=== PATIENT | male | born 1965 | race Caucasian/White ===

== ENCOUNTER → 2016-11-14 | Outpatient (CLI) | payer OTHER ==
[2016-11-14 18:54] LABS: ALBUMIN 4.1 GM/DL (3.2-5.2); ALBUMIN/GLOBULIN RATIO 1.14 (1.00-1.93); ALKALINE PHOSPHATASE 64 U/L (45-117); ALT/SGPT 19 U/L (12-78); ANION GAP 11 MEQ/L (8-16); AST/SGOT 16 U/L (15-37); BILIRUBIN,TOTAL 0.3 MG/DL (0.2-1.0); BLOOD UREA NITROGEN 6 MG/DL (7-18); CALCIUM LEVEL 9.2 MG/DL (8.5-10.1); CARBON DIOXIDE LEVEL 25 MEQ/L (21-32); CHLORIDE LEVEL 104 MEQ/L (98-107); CHOLESTEROL LEVEL 273 MG/DL (<200); CREATININE FOR GFR 0.75 MG/DL (0.70-1.30); GLOMERULAR FILTRATION RATE > 60.0 (>56); GLUCOSE, FASTING 64 MG/DL (70-105); POTASSIUM SERUM 4.5 MEQ/L (3.5-5.1); SODIUM LEVEL 140 MEQ/L (136-145); TOTAL PROTEIN 7.7 GM/DL (6.4-8.2); TRIGLYCERIDES LEVEL 163 MG/DL (<150)
== END ==
LOC: M WUC 15:17
PROVIDERS: ATTEND Family Medicine Addiction Medicine
DX: I10 Essential (primary) hypertension (principal)

== ENCOUNTER → 2018-02-05 | Outpatient (CLI) | payer OTHER ==
[2018-02-05 17:01] LABS: ALBUMIN 4.1 GM/DL (3.2-5.2); ALBUMIN/GLOBULIN RATIO 1.11 (1.00-1.93); ALKALINE PHOSPHATASE 67 U/L (45-117); ALT/SGPT 36 U/L (12-78); ANION GAP 10 MEQ/L (8-16); AST/SGOT 24 U/L (7-37); BILIRUBIN,TOTAL 0.5 MG/DL (0.2-1.0); BLOOD UREA NITROGEN 7 MG/DL (7-18); CALCIUM LEVEL 9.5 MG/DL (8.5-10.1); CARBON DIOXIDE LEVEL 24 MEQ/L (21-32); CHLORIDE LEVEL 101 MEQ/L (98-107); CHOLESTEROL LEVEL 250 MG/DL (<200); CHOLESTEROL RISK RATIO 2.551 (<5); CREATININE FOR GFR 0.79 MG/DL (0.70-1.30); GLOMERULAR FILTRATION RATE > 60.0 (>56); GLUCOSE, FASTING 78 MG/DL (70-100); HDL CHOLESTEROL 98 MG/DL (>40); LDL CHOLESTEROL 133.4 MG/DL (<100); NON-HDL-C 152 MG/DL; POTASSIUM SERUM 4.2 MEQ/L (3.5-5.1); SODIUM LEVEL 135 MEQ/L (136-145); TOTAL PROTEIN 7.8 GM/DL (6.4-8.2); TRIGLYCERIDES LEVEL 93 MG/DL (<150)
== END ==
LOC: M WUC 13:25
DX: M54.5 Low back pain (principal); I10 Essential (primary) hypertension
CPT/HCPCS: 84443

== ENCOUNTER 2018-02-15 12:53 | Outpatient (RCR) | payer OTHER | END 2018-03-11 | LOC: M PT 12:53 | DX: Z51.89 Encounter for other specified aftercare (principal); M54.5 Low back pain | CPT/HCPCS: 97010 ==

== ENCOUNTER 2018-05-10 12:55 | Outpatient (RCR) | payer MEDICAID | END 2018-05-11 | LOC: M PT 12:55 | DX: Z51.89 Encounter for other specified aftercare (principal); M54.5 Low back pain | CPT/HCPCS: 97110 ==

== ENCOUNTER 2018-05-13 12:20 | Outpatient (RCR) | payer MEDICAID | END 2018-06-11 | LOC: M PT 05-23 13:39 | DX: Z51.89 Encounter for other specified aftercare (principal); M54.5 Low back pain ==

== ENCOUNTER → 2018-10-10 | Outpatient (REF) | payer MEDICAID ==
[2018-10-10 19:05] LABS: BASO % 0.7 % (0.0-1.0); EOS # 0.1 10^3/uL (0.0-0.50); EOS % 1.1 % (0.0-3.0); HEMATOCRIT 46.7 % (42.0-52.0); HEMOGLOBIN 16.3 g/dl (13.5-17.5); IMMATURE GRANULOCYTE % 0.2 % (0-3.0); MEAN CORPUSCULAR HEMOGLOBIN 35.3 pg (27.0-33.0); MEAN CORPUSCULAR HGB CONC 34.9 g/dl (32.0-36.5); MEAN CORPUSCULAR VOLUME 101.1 fl (80.0-96.0); MONO # 0.7 10^3/uL (0.0-0.8); MONO % 15.9 % (0.0-5.0); NEUTROPHILS # 2.7 10^3/uL (1.8-7.7); NEUTROPHILS % 59.1 % (36.0-66.0); PLATELET COUNT, AUTOMATED 196 10^3/uL (150-450); RED BLOOD COUNT 4.62 10^6/uL (4.30-6.10); WHITE BLOOD COUNT 4.5 10^3/uL (4.0-10.0)
[2018-10-10 19:22] LABS: ALBUMIN 3.7 GM/DL (3.2-5.2); ALBUMIN/GLOBULIN RATIO 1.12 (1.00-1.93); ALKALINE PHOSPHATASE 62 U/L (45-117); ALT/SGPT 38 U/L (12-78); ANION GAP 12 MEQ/L (8-16); AST/SGOT 34 U/L (7-37); BILIRUBIN,TOTAL 0.5 MG/DL (0.2-1.0); BLOOD UREA NITROGEN 5 MG/DL (7-18); CALCIUM LEVEL 8.9 MG/DL (8.5-10.1); CARBON DIOXIDE LEVEL 24 MEQ/L (21-32); CHLORIDE LEVEL 99 MEQ/L (98-107); CHOLESTEROL LEVEL 217 MG/DL (<200); CHOLESTEROL RISK RATIO 1.823 (<5); CREATININE FOR GFR 0.78 MG/DL (0.70-1.30); FOLATE 15.7 NG/ML (>5.4); GLOMERULAR FILTRATION RATE > 60.0 (>56); GLUCOSE, FASTING 74 MG/DL (70-100); HDL CHOLESTEROL 119 MG/DL (>40); LDL CHOLESTEROL 86 MG/DL (<100); NON-HDL-C 98 MG/DL; POTASSIUM SERUM 4.1 MEQ/L (3.5-5.1); SODIUM LEVEL 135 MEQ/L (136-145); TOTAL 25(OH) VITAMIN D 15.8 NG/ML (30.0-100.0); TRIGLYCERIDES LEVEL 58 MG/DL (<150); VITAMIN B12 LEVEL 364 PG/ML (247-911)
[2018-10-10 19:36] LABS: ESTIMATED AVERAGE GLUCOSE 103 MG/DL (60-110); HEMOGLOBIN A1c 5.2 %
== END ==
LOC: M LAB REF 18:33
DX: Z13.9 Encounter for screening, unspecified (principal)
CPT/HCPCS: 82746

== ENCOUNTER 2019-02-03 11:12 | Emergency (ER) | payer MEDICAID ==
[~2019-02-03] VITALS: Ht 170.2 cm; Wt 59.1 kg
[2019-02-03] MEDS ORDERED: AMLO10TA5 (11:34)
[2019-02-03] MEDS ORDERED: LISI-538 (11:34)
--- NOTE | 2019-02-03 12:13 | REP ---
Left rib series: Four views. History: Injury striking left posterior ribs. No comparison study. Findings: There is no evidence of pneumothorax or hydrothorax. No left lung infiltrate is seen. The right hemidiaphragm is somewhat elevated. Multiple views of the left rib cage show old appearing fractures of the left posterior 10th and 11th ribs. No definite acute rib fracture is seen. Impression: Old appearing nondisplaced left posterior 10th and 11th rib fractures. No acute rib fracture seen. Somewhat elevated right hemidiaphragm. Electronically Signed by Salvador Schumacher MD 02/03/2019 02:24 P
[2019-02-03] MEDS ORDERED: PERCOCET 5MG/325MG TAB PO ONE (13:30)
[2019-02-03] MEDS ORDERED: PERC5TAB12 PO (13:30)
[2019-02-03 13:39] VITALS: BP 132/88
== END 2019-02-03 13:35 | disposition home or self-care (01) ==
LOC: M ED 11:12
DX: S20.222A Contusion of left back wall of thorax, initial encounter (principal); W19.XXXA Unspecified fall, initial encounter; Y92.098 Other place in other non-institutional residence as the place of occurrence of the external cause; I10 Essential (primary) hypertension; F17.210 Nicotine dependence, cigarettes, uncomplicated; Z87.81 Personal history of (healed) traumatic fracture; Z79.899 Other long term (current) drug therapy

== ENCOUNTER 2019-05-20 09:54 | Emergency (ER) | payer MEDICAID, OTHER ==
[~2019-05-20] VITALS: Ht 170.2 cm; Wt 59.1 kg
[~2019-05-20 09:54] MED LIST: AMLO10TA5 PO; LISI-538 PO; PERC5TAB12 PO
[2019-05-20] MEDS ORDERED: VITA1CAP25 PO (09:59)
--- NOTE | 2019-05-20 11:12 | REP ---
RIGHT RIB SERIES: Four views of the right ribs are performed. Nondisplaced fractures are noted of the posterolateral right 9th and 10th ribs. An accompanying view of the chest demonstrates mild linear fibroatelectatic changes in both lung bases. There is no pneumothorax or evidence of significant pleural effusion. There is a possible 5 mm nodule in the right upper lobe. IMPRESSION: Nondisplaced fractures right 9th and 10 ribs. Possible 5 mm nodule right upper lobe. Recommend followup CT of the chest. Electronically Signed by Loy Lewis MD 05/21/2019 10:50 A
[2019-05-20] MEDS ORDERED: KETO10TAB PO (11:34)
[2019-05-20] MEDS ORDERED: NORCO, ANEXSIA 5/325MG TABLET (HYDROcodone/ACETAMINOPHEN) PO ONE (11:45)
[2019-05-20 11:50] VITALS: BP 141/89
--- NOTE | 2019-05-22 13:30 | ED PDOC ---
Post-Departure Follow-Up huey dahl faxed formal report of rib film for fu Jeniffer Chapman MD May 22, 2019 13:30
== END 2019-05-20 11:51 | disposition home or self-care (01) ==
LOC: M ED 09:54
DX: R91.1 Solitary pulmonary nodule (principal); J98.11 Atelectasis; S22.41XA Multiple fractures of ribs, right side, initial encounter for closed fracture; W22.8XXA Striking against or struck by other objects, initial encounter; Y92.008 Other place in unspecified non-institutional (private) residence as the place of occurrence of the external cause; I10 Essential (primary) hypertension; E78.5 Hyperlipidemia, unspecified; F17.210 Nicotine dependence, cigarettes, uncomplicated

== ENCOUNTER 2019-05-21 22:20 | Emergency (ER) | payer MEDICAID, OTHER ==
[~2019-05-21] VITALS: Ht 167.6 cm; Wt 57.1 kg
[~2019-05-21 22:20] MED LIST changes: +KETO10TAB PO; +VITA1CAP25 PO
[2019-05-21 22:22] VITALS: BP 94/67
[2019-05-22] MEDS ORDERED: DRIS50003 PO (12:27)
== END 2019-05-21 22:43 | disposition left against medical advice (07) ==
LOC: M ED 22:20
DX: Z53.21 Procedure and treatment not carried out due to patient leaving prior to being seen by health care provider (principal)

== ENCOUNTER 2019-05-22 09:53 | Observation (INO) | payer MEDICAID, OTHER ==
[~2019-05-22] VITALS: Ht 170.2 cm; Wt 56.7 kg
[2019-05-22] MEDS: ACETAMINOPHEN 500 MG TAB PO SCH ×2 (09:00→20:48)
[2019-05-22] MEDS ORDERED: IPRATROPIUM 0.5MG/ALBUTEROL 2.5MG INH SOL UD 3ML (DUONEB)(J7620) NEB ONE (11:15)
[2019-05-22] MEDS ORDERED: KETOROLAC 30 MG/ML VIAL (J1885) IM ONE (11:30)
[2019-05-22] MEDS ORDERED: NORCO, ANEXSIA 5/325MG TABLET (HYDROcodone/ACETAMINOPHEN) PO ONE (11:30)
[2019-05-22] MEDS ORDERED: LIDOCAINE 5% (LIDODERM) PATCH TD ONE (11:30)
[2019-05-22 11:42] LABS: BASO % 0.2 % (0.0-1.0); EOS % 0.1 % (0.0-3.0); HEMATOCRIT 46.9 % (42.0-52.0); HEMOGLOBIN 16.7 g/dl (13.5-17.5); LYMPH # 0.8 10^3/uL (1.5-4.5); LYMPH % 9.5 % (24.0-44.0); MEAN CORPUSCULAR HEMOGLOBIN 35.2 pg (27.0-33.0); MEAN CORPUSCULAR HGB CONC 35.6 g/dl (32.0-36.5); MEAN CORPUSCULAR VOLUME 98.7 fl (80.0-96.0); MONO # 1.2 10^3/uL (0.0-0.8); MONO % 14.3 % (0.0-5.0); NEUTROPHILS # 6.2 10^3/uL (1.8-7.7); NEUTROPHILS % 75.7 % (36.0-66.0); PLATELET COUNT, AUTOMATED 189 10^3/uL (150-450); RED BLOOD COUNT 4.75 10^6/uL (4.30-6.10); WHITE BLOOD COUNT 8.2 10^3/uL (4.0-10.0)
[2019-05-22 12:04] LABS: BLOOD UREA NITROGEN 23 MG/DL (7-18); CALCIUM LEVEL 10.3 MG/DL (8.5-10.1); CARBON DIOXIDE LEVEL 24 MEQ/L (21-32); CHLORIDE LEVEL 94 MEQ/L (98-107); CREATININE FOR GFR 1.55 MG/DL (0.70-1.30); GLOMERULAR FILTRATION RATE 49.6 (>56); GLUCOSE, FASTING 86 MG/DL (70-100); POTASSIUM SERUM 3.4 MEQ/L (3.5-5.1); SODIUM LEVEL 130 MEQ/L (136-145)
[2019-05-22] MEDS ORDERED: NS 1,000 ML IV ONE (12:15)
[2019-05-22] MEDS ORDERED: POTASSIUM CHLORIDE 10 MEQ SR TABLET PO ONE (12:15)
[2019-05-22] MEDS ORDERED: ISOVUE-370 76% 100ML VIAL (Q9967) As Ordered ONE (12:16)
[2019-05-22] MEDS ORDERED: DRIS50003 PO (12:27)
[2019-05-22] MEDS ORDERED: IPRATROPIUM 0.5MG/ALBUTEROL 2.5MG INH SOL UD 3ML (DUONEB)(J7620) NEB PRN (12:45)
[2019-05-22 13:12] LABS: CK-MB VALUE MASS < 1.0 NG/ML (<3.6); CPK CREATINE PHOSPHOKINASE 37 U/L (39-308); MAGNESIUM LEVEL 2.4 MG/DL (1.8-2.4); NT-PRO BNP 227 PG/ML (<125); THYROID STIMULATING HORMONE 0.974 uIU/ML (0.358-3.740); TROPONIN I < 0.02 NG/ML (< 0.10)
--- NOTE | 2019-05-22 13:13 | REP ---
CHEST X-RAY: TWO VIEWS. HISTORY: Left rib fractures. Increased shortness of breath. Productive cough. Evaluate for pneumonia. Comparison study is from May 20, 2019. FINDINGS: There is no evidence of pneumothorax or hydrothorax. Nondisplaced right lateral 9th and 10th rib fractures are again seen. There is a 5 mm nodular density in the right upper perihilar region again noted. This is not clearly calcified. There is discoid atelectasis visible on the lateral film in one of the lower lobes, probably the left. There are subtle increased markings in the left base behind the heart. Developing infiltrate cannot be excluded. IMPRESSION: Increased markings in the left lower lobe behind the heart. Developing infiltrate versus atelectasis. Recent right rib fractures. 5 mm nodule right upper lobe region, unchanged from May 20, 2019 study. Electronically Signed by Salvador Schumacher MD 05/22/2019 05:08 P
--- NOTE | 2019-05-22 13:31 | REP ---
CT CHEST WITH IV CONTRAST: TECHNIQUE: Axial contrast enhanced images from the thoracic inlet to the upper abdomen using 100 mL Isovue 370 intravenous contrast material with multiplanar reformations. In the right upper lobe there is a slightly irregular nodule. It measures 7 mm in diameter. No other definite pulmonary nodules are seen bilaterally. In both lower lobes there is mild bronchiectasis with streaky infiltrate. I do not see a significant mediastinal, hilar, or chest wall lymphadenopathy. There is no pleural or pericardial effusion. The heart is not enlarged. Thoracic aorta demonstrates mild atherosclerotic calcification without aneurysm. There are degenerative changes of the spine. There are acute nondisplaced fractures of the right 9th and 10th ribs posterolaterally. There appear to be old fractures of the left 10th -12th ribs. The visualized upper abdominal structures appear unremarkable. IMPRESSION: 7 mm nodular density right upper lobe. No other pulmonary nodules present. According to Fleischner's Society criteria recommendations followup CT is recommended in 6 months. There is bilateral lower lobe bronchiectasis with mild streaky infiltrates. No adenopathy. Electronically Signed by Loy Lewis MD 05/23/2019 03:00 P
[2019-05-22] MEDS ORDERED: OXAZEPAM 10 MG CAP PO PRN (14:00)
[2019-05-22 14:03] LABS: VITAMIN B12 LEVEL 414 PG/ML
[2019-05-22 14:04] LABS: FOLATE 12.7 NG/ML
[2019-05-22] MEDS ORDERED: MORPHINE 30 MG TAB **MSIR PO PRN (14:15)
[2019-05-22] MEDS ORDERED: NALOXONE INJ 0.4 MG/1 ML VIAL (J2310) IV PRN (14:15)
[2019-05-22] MEDS ORDERED: NICOTINE POLACRILEX 2 MG GUM PO PRN (14:15)
--- NOTE | 2019-05-22 14:48 | ECGEPIP ---
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
[2019-05-22 14:51] LABS: CALCIUM LEVEL 9.1 MG/DL (8.5-10.1); CREATININE FOR GFR 1.4 MG/DL (0.70-1.30); GLOMERULAR FILTRATION RATE 55.8 (>56); POTASSIUM SERUM 3.5 MEQ/L (3.5-5.1)
[2019-05-22 15:00] VITALS: BP_SYST 137; BP_DIAS 72; BP_DIAS 92
[2019-05-22] MEDS ORDERED: MULTIVITAMINS/MINERALS THERAP 1 TAB PO ONE (15:00)
[2019-05-22] MEDS ORDERED: THIAMINE 100 MG TAB PO ONE (15:00)
[2019-05-22] MEDS ORDERED: AZITHROMYCIN 250 MG TAB PO ONE (15:00)
[2019-05-22] MEDS ORDERED: cefTRIAXone SOD 2 GM in D5W MINI-BAG PLUS 50 ML IV SCH (15:00)
[2019-05-22] MEDS ORDERED: FOLIC ACID 1 MG TAB PO ONE (15:00)
[2019-05-22] MEDS ORDERED: predniSONE 20 MG TAB PO ONE (15:00)
[2019-05-22] MEDS ORDERED: MULTIVITAMIN -ADULT INJECTION 10 ML, THIAMINE INJection 100 MG, FOLIC ACID 1 MG in NS 1... IV ONE (15:00)
[2019-05-22] MEDS ORDERED: OXAZEPAM 10 MG CAP PO ONE (15:00)
[2019-05-22] MEDS ORDERED: NICOTINE POLACRILEX 2 MG GUM PO ONE (15:00)
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
[2019-05-22] MEDS: NICOTINE 14 MG/24 HR TRANSDERMAL TD SCH (15:41)
[2019-05-22] MEDS: amLODIPine 10 MG TAB PO SCH (15:41)
[2019-05-22] MEDS: ENOXAPARIN 30 MG/0.3 ML SYR (J1650) SC SCH (15:41)
[2019-05-22 17:30] LABS: AMPHETAMINES LEVEL URINE NEGATIVE (NEGATIVE); BARBITURATES URINE NEGATIVE (NEGATIVE); BENZODIAZEPINES URINE NEGATIVE (NEGATIVE); CANNABINOIDS URINE NEGATIVE (NEGATIVE); COCAINE METABOLITE URINE NEGATIVE (NEGATIVE); METHADONE URINE NEGATIVE (NEGATIVE); OPIATES URINE POSITIVE (NEGATIVE); PHENCYCLIDINE URINE NEGATIVE (NEGATIVE)
--- NOTE | 2019-05-22 20:40 | ECHO ---
DATE OF PROCEDURE: 05/22/2019 REFERRING PHYSICIAN: Dr. Roger INDICATION: Dyspnea. Height 168 cm, weight 57 kg. DIMENSIONS: IVS: 1.1 LV: 3.6 LVPW: 1.1 LA: 2.9 Aorta: 3.1 IVC: 1.0 Mitral E wave velocity: 44 A wave: 69 E prime septal: 8.1 E prime lateral: 11.2 FINDINGS: The study is of fair technical quality with difficult visualization. Left ventricle is of normal size and normal systolic function with estimated left ventricular ejection fraction (LVEF) 65-70%. I do not appreciate any segmental wall motion abnormalities based on limited views. Right ventricle appears grossly normal. Left atrium appears normal. Right atrium was poorly visualized. Aortic valve appears mildly sclerotic but mobility of cusps is preserved. Mitral and tricuspid valves appear normal. Pulmonic valve was not well seen. No pericardial effusion is noted. Inferior vena cava is normal size. Aortic root is normal. Aortic arch also appears normal. Abdominal aorta was not well seen. Doppler interrogation of aortic valve reveals no stenosis or insufficiency. There is trivial mitral insufficiency. Tricuspid valve is functionally competent. Mitral inflow pattern and tissue Doppler imaging of mitral annulus revealed grade 1 diastolic dysfunction. CONCLUSIONS: 1. Study is of difficult technical quality. 2. Normal left ventricular (LV) size with grossly preserved LV systolic function and grade 1 diastolic dysfunction. 3. No significant valvular disease. 4. Normal central venous pressure. 5. Unable to estimate pulmonary artery pressure. COMMENT: Subacute bacterial endocarditis (SBE) prophylaxis is not recommended.
[2019-05-22] MEDS: IPRATROPIUM 0.5MG/ALBUTEROL 2.5MG INH SOL UD 3ML (DUONEB)(J7620) NEB SCH (20:58)
[2019-05-22 21:35] LABS: CK-MB VALUE MASS < 1.0 NG/ML (<3.6); CPK CREATINE PHOSPHOKINASE 40 U/L (39-308); TROPONIN I < 0.02 NG/ML (< 0.10)
[2019-05-22 22:00] VITALS: BP 124/83
[2019-05-22 23:00] VITALS: BP 124/83
[2019-05-23] MEDS: IPRATROPIUM 0.5MG/ALBUTEROL 2.5MG INH SOL UD 3ML (DUONEB)(J7620) NEB SCH ×2 (04:00)
[2019-05-23 06:00] VITALS: BP 110/68
[2019-05-23 06:31] LABS: BASO % 0.2 % (0.0-1.0); HEMATOCRIT 35.7 % (42.0-52.0); HEMOGLOBIN 12.8 g/dl (13.5-17.5); LYMPH # 0.6 10^3/uL (1.5-4.5); LYMPH % 10.1 % (24.0-44.0); MEAN CORPUSCULAR HEMOGLOBIN 36.3 pg (27.0-33.0); MEAN CORPUSCULAR HGB CONC 35.9 g/dl (32.0-36.5); MEAN CORPUSCULAR VOLUME 101.1 fl (80.0-96.0); MONO # 0.9 10^3/uL (0.0-0.8); MONO % 16.2 % (0.0-5.0); NEUTROPHILS % 73.3 % (36.0-66.0); PLATELET COUNT, AUTOMATED 164 10^3/uL (150-450); RED BLOOD COUNT 3.53 10^6/uL (4.30-6.10); WHITE BLOOD COUNT 5.4 10^3/uL (4.0-10.0)
[2019-05-23] MEDS ORDERED: ACET-683 PO (06:57)
[2019-05-23] MEDS ORDERED: NICO14PA TD (06:57)
[2019-05-23] MEDS ORDERED: VENTAER INH (06:57)
[2019-05-23] MEDS ORDERED: PRED10TA2 PO (06:57)
[2019-05-23] MEDS ORDERED: TIOT18INH INH (06:57)
[2019-05-23] MEDS ORDERED: DOXY-350 PO (06:57)
[2019-05-23] MEDS ORDERED: MOXIFLOXACIN 400 MG TAB PO ONE (07:00)
[2019-05-23] MEDS ORDERED: MULTIVITAMIN -ADULT INJECTION 10 ML, THIAMINE INJection 100 MG, FOLIC ACID 1 MG in NS 1... IV ONE (07:00)
[2019-05-23 07:09] LABS: BLOOD UREA NITROGEN 24 MG/DL (7-18); CALCIUM LEVEL 8.7 MG/DL (8.5-10.1); CARBON DIOXIDE LEVEL 23 MEQ/L (21-32); CHLORIDE LEVEL 108 MEQ/L (98-107); CK-MB VALUE MASS < 1.0 NG/ML (<3.6); CPK CREATINE PHOSPHOKINASE 26 U/L (39-308); CREATININE FOR GFR 0.72 MG/DL (0.70-1.30); GLOMERULAR FILTRATION RATE > 60.0 (>56); GLUCOSE, FASTING 114 MG/DL (70-100); MB/CK RELATIVE INDEX 3.85 (< OR =4); POTASSIUM SERUM 3.6 MEQ/L (3.5-5.1); SODIUM LEVEL 137 MEQ/L (136-145); TROPONIN I < 0.02 NG/ML (< 0.10)
[2019-05-23] MEDS: ALBUTEROL 90 MCG/ACT 8GM HFA INHALER INH SCH ×2 (07:22→11:11)
[2019-05-23] MEDS ORDERED: TIOTROPIUM INHALER/CAPSULE (SPIRIVA) INH SCH (08:00)
[2019-05-23] MEDS: ENOXAPARIN 30 MG/0.3 ML SYR (J1650) SC SCH (08:12)
[2019-05-23 08:13] VITALS: BP 122/75
[2019-05-23] MEDS: ACETAMINOPHEN 500 MG TAB PO SCH (08:13)
[2019-05-23] MEDS: amLODIPine 10 MG TAB PO SCH (08:13)
[2019-05-23] MEDS: NICOTINE 14 MG/24 HR TRANSDERMAL TD SCH (08:13)
[2019-05-23] MEDS ORDERED: AZITHROMYCIN 250 MG TAB PO SCH (09:00)
[2019-05-23] MEDS ORDERED: FOLIC ACID 1 MG TAB PO SCH (09:00)
[2019-05-23] MEDS ORDERED: MULTIVITAMINS/MINERALS THERAP 1 TAB PO SCH (09:00)
[2019-05-23] MEDS ORDERED: THIAMINE 100 MG TAB PO SCH (09:00)
[2019-05-23] MEDS ORDERED: predniSONE 20 MG TAB PO SCH (09:00)
[2019-05-23 09:10] VITALS: BP 110/72
[2019-05-23] MEDS ORDERED: INCR1INH INH (10:58)
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
[2019-05-27 00:06] LABS: BODY FLUID CULTURE Not Indicated (.); LEGIONELLA ANTIGEN URINE Negative (Negative); ORGANISM ID Not indicated. (.); SPECIMEN SOURCE Urine (.); URINE STREP PNEUMONIAE ANTIGEN Negative (Negative)
== END 2019-05-23 12:00 | disposition home or self-care (01) ==
LOC: M ED 09:53 → M ED INP 12:40 → INTOOBSV 12:40 → M MSPAV 14:58
PROVIDERS: ADMIT General Practice; ATTEND General Practice
DX: R91.1 Solitary pulmonary nodule (principal); J47.9 Bronchiectasis, uncomplicated; S22.41XD Multiple fractures of ribs, right side, subsequent encounter for fracture with routine healing; Y04.8XXD Assault by other bodily force, subsequent encounter; F17.200 Nicotine dependence, unspecified, uncomplicated; F10.10 Alcohol abuse, uncomplicated; E86.0 Dehydration; I10 Essential (primary) hypertension; E55.9 Vitamin D deficiency, unspecified; E87.1 Hypo-osmolality and hyponatremia; E87.6 Hypokalemia; N17.9 Acute kidney failure, unspecified; M51.26 Other intervertebral disc displacement, lumbar region; M54.9 Dorsalgia, unspecified; R06.02 Shortness of breath; G81.91 Hemiplegia, unspecified affecting right dominant side; Z79.899 Other long term (current) drug therapy; Z79.52 Long term (current) use of systemic steroids; Z79.891 Long term (current) use of opiate analgesic
CPT/HCPCS: 36415; 71046; 71260; 80048; 80307; 82550; 82553; 82607; 82746; 83605; 83735; 83880; 83921; 84145; 84443; 85025; 85379; 87081; 87449; 87486; 87581; 87633; 87798; 87899; 93005; 93306; 94640; 96361; 96365; 96366; 96372; 97161; 99284; J0696; J1650; J1885; J3411; Q9967

== ENCOUNTER 2019-06-02 09:59 | Inpatient (IN) | payer OTHER ==
[~2019-06-02] VITALS: Ht 167.6 cm; Wt 56.0 kg
[2019-06-02] MEDS: NICOTINE 7 MG/24 HR TRANSDERMAL TD SCH (09:00)
[2019-06-02] MEDS: amLODIPine 10 MG TAB PO SCH (09:00)
[~2019-06-02 09:59] MED LIST changes: +ACET-683 PO; +DOXY-350 PO; +DRIS50003 PO; +INCR1INH INH; +NICO14PA TD; +PRED10TA2 PO; +TIOT18INH INH; +VENTAER INH
[2019-06-02] MEDS ORDERED: NS 1,000 ML IV ONE (11:15)
[2019-06-02] MEDS ORDERED: PANTOPRAZOLE 40MG INJ (PROTONIX) (C9113) IV ONE (11:15)
[2019-06-02] MEDS ORDERED: MORPHINE 4 MG/ML 1ML VIAL/SYRINGE (J2270) IV ONE (11:15)
[2019-06-02 11:21] LABS: EOS % 0.4 % (0.0-3.0); HEMATOCRIT 26.4 % (42.0-52.0); HEMOGLOBIN 8.9 g/dl (13.5-17.5); LYMPH # 0.8 10^3/uL (1.5-4.5); LYMPH % 9.9 % (24.0-44.0); MEAN CORPUSCULAR HEMOGLOBIN 36.9 pg (27.0-33.0); MEAN CORPUSCULAR HGB CONC 33.7 g/dl (32.0-36.5); MEAN CORPUSCULAR VOLUME 109.5 fl (80.0-96.0); MONO # 0.9 10^3/uL (0.0-0.8); MONO % 10.9 % (0.0-5.0); NEUTROPHILS # 6.2 10^3/uL (1.8-7.7); NEUTROPHILS % 78.3 % (36.0-66.0); PLATELET COUNT, AUTOMATED 478 10^3/uL (150-450); RED BLOOD COUNT 2.41 10^6/uL (4.30-6.10)
[2019-06-02 11:51] LABS: ALBUMIN 3.1 GM/DL (3.2-5.2); ALT/SGPT 22 U/L (12-78); BILIRUBIN,DIRECT < 0.1 MG/DL (0.0-0.2); BILIRUBIN,TOTAL 0.1 MG/DL (0.2-1.0); BLOOD UREA NITROGEN 14 MG/DL (7-18); CALCIUM LEVEL 13.1 MG/DL (8.5-10.1); CARBON DIOXIDE LEVEL 28 MEQ/L (21-32); CHLORIDE LEVEL 101 MEQ/L (98-107); CREATININE FOR GFR 1.49 MG/DL (0.70-1.30); GLOMERULAR FILTRATION RATE 51.9 (>56); GLUCOSE, FASTING 100 MG/DL (70-100); LIPASE 331 U/L (73-393); POTASSIUM SERUM 4.3 MEQ/L (3.5-5.1); SODIUM LEVEL 136 MEQ/L (136-145); TOTAL PROTEIN 6.5 GM/DL (6.4-8.2)
[2019-06-02] MEDS ORDERED: ISOVUE-370 76% 100ML VIAL (Q9967) As Ordered ONE (12:17)
[2019-06-02 12:30] LABS: INR 0.94; PROTHROMBIN TIME 12.3 SECONDS (11.8-14.0)
[2019-06-02] MEDS ORDERED: INCR1INH INH (13:15)
[2019-06-02] MEDS ORDERED: TUMS500C PO (13:15)
[2019-06-02] MEDS ORDERED: VENTAER INH (13:15)
[2019-06-02] MEDS ORDERED: ACET-683 PO (13:15)
[2019-06-02] MEDS ORDERED: PEPT262C2 PO (13:16)
--- NOTE | 2019-06-02 13:27 | REP ---
CT of the abdomen and pelvis with IV contrast, without bowel contrast for abdominal pain and gastrointestinal bleeding: There are no comparisons. The visualized lung cesar demonstrate dependent atelectasis but are otherwise unremarkable. The hepatic parenchyma is homogeneous. The gallbladder, pancreas and spleen are unremarkable. The pancreatic duct is visible and measures 2 mm in diameter which is normal. There is no pancreatic phlegmon or mass. The adrenals are unremarkable. The kidneys are unremarkable. The abdominal aorta is unremarkable except for calcified atheroma. There is mild distension and wall thickening of small bowel loops in the left upper quadrant. This is nonspecific but can be represent enteritis in the appropriate clinical setting. Pelvis: There is no ascites or adenopathy. There are occasional diverticula in the descending colon and sigmoid colon. There is wall thickening of the descending colon and proximal sigmoid colon. This is compatible with colitis in the appropriate clinical setting. There are appendicoliths. The appendix is otherwise unremarkable. The bladder is unremarkable. Impression: There is small bowel mild distension and wall thickening in the left upper quadrant and there is colonic wall thickening of the descending colon and sigmoid colon. These findings are compatible with enteritis and colitis in the appropriate clinical setting. There are occasional diverticula in the descending colon and sigmoid colon. There is no CT evidence of diverticulitis. There is no ascites or adenopathy. There are appendicoliths, however the appendix is otherwise unremarkable. Electronically Signed by Loy Erwin MD 06/02/2019 01:19 P
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
[2019-06-02] MEDS ORDERED: OCTREOTIDE ACETATE 100 MCG/ML VIAL (J2354) IV ONE (14:45)
[2019-06-02] MEDS ORDERED: LORazepam 2 MG/ML VIAL (J2060) IM PRN (15:00)
[2019-06-02] MEDS: PANTOPRAZOLE SODIUM 40 MG in D5W MINI-BAG PLUS 50 ML IV SCH ×2 (15:14→19:41)
[2019-06-02] MEDS ORDERED: ALBUTEROL 90 MCG/ACT 8GM HFA INHALER INH PRN (15:15)
[2019-06-02] MEDS: cefTRIAXone SOD 1 GM in D5W MINI-BAG PLUS 50 ML IV SCH (15:42)
[2019-06-02] MEDS ORDERED: GOLYTELY SOLN 4000 ML BTL PO ONE (16:00)
[2019-06-02 16:06] LABS: HEMATOCRIT 26.5 % (42.0-52.0); HEMOGLOBIN 8.9 g/dl (13.5-17.5); MEAN CORPUSCULAR HEMOGLOBIN 36.8 pg (27.0-33.0); MEAN CORPUSCULAR HGB CONC 33.6 g/dl (32.0-36.5); MEAN CORPUSCULAR VOLUME 109.5 fl (80.0-96.0); PLATELET COUNT, AUTOMATED 461 10^3/uL (150-450); RED BLOOD COUNT 2.42 10^6/uL (4.30-6.10); WHITE BLOOD COUNT 6.9 10^3/uL (4.0-10.0)
[2019-06-02] MEDS: THIAMINE HCL 200 MG/2 ML VIAL (J3411) IM SCH (16:23)
[2019-06-02] MEDS: NS 1,000 ML IV SCH (16:24)
[2019-06-02 16:45] VITALS: BP 145/73
[2019-06-02 17:29] VITALS: BP_SYST 141; BP_SYST 152; BP_SYST 172; BP_DIAS 85; BP_DIAS 88; BP_DIAS 90
[2019-06-02 20:00] VITALS: BP 124/77
[2019-06-02] MEDS: MORPHINE 4 MG/ML 1ML VIAL/SYRINGE (J2270) IV PRN (21:15)
[2019-06-02] MEDS: FOLIC ACID 1 MG in NS 50 ML IV SCH (21:53)
[2019-06-02 23:59] VITALS: BP 126/77
[2019-06-03] MEDS: PANTOPRAZOLE SODIUM 40 MG in D5W MINI-BAG PLUS 50 ML IV SCH ×5 (00:06→20:34)
[2019-06-03] MEDS: MORPHINE 4 MG/ML 1ML VIAL/SYRINGE (J2270) IV PRN ×4 (01:11→19:42)
[2019-06-03 04:00] VITALS: BP 116/63
[2019-06-03 05:07] LABS: EOS # 0.1 10^3/uL (0.0-0.50); EOS % 0.8 % (0.0-3.0); HEMATOCRIT 21.8 % (42.0-52.0); HEMOGLOBIN 7.1 g/dl (13.5-17.5); LYMPH # 0.5 10^3/uL (1.5-4.5); LYMPH % 7.8 % (24.0-44.0); MEAN CORPUSCULAR HEMOGLOBIN 35.1 pg (27.0-33.0); MEAN CORPUSCULAR HGB CONC 32.6 g/dl (32.0-36.5); MEAN CORPUSCULAR VOLUME 107.9 fl (80.0-96.0); MONO # 0.7 10^3/uL (0.0-0.8); MONO % 11.3 % (0.0-5.0); NEUTROPHILS # 5.1 10^3/uL (1.8-7.7); NEUTROPHILS % 79.6 % (36.0-66.0); PLATELET COUNT, AUTOMATED 386 10^3/uL (150-450); RED BLOOD COUNT 2.02 10^6/uL (4.30-6.10); WHITE BLOOD COUNT 6.4 10^3/uL (4.0-10.0)
[2019-06-03 05:40] LABS: ALBUMIN 2.6 GM/DL (3.2-5.2); BILIRUBIN,TOTAL 0.2 MG/DL (0.2-1.0); CALCIUM LEVEL 10.1 MG/DL (8.5-10.1); CREATININE FOR GFR 1.49 MG/DL (0.70-1.30); GLOMERULAR FILTRATION RATE 51.9 (>56); PERCENT SATURATION 13.2 % (19.7-50.0); POTASSIUM SERUM 4.1 MEQ/L (3.5-5.1); TOTAL PROTEIN 5.1 GM/DL (6.4-8.2)
[2019-06-03] MEDS ORDERED: GOLYTELY SOLN 4000 ML BTL PO ONE (06:00)
[2019-06-03 08:00] VITALS: BP 150/83
[2019-06-03] MEDS: NS 1,000 ML IV SCH (08:42)
[2019-06-03] MEDS: amLODIPine 10 MG TAB PO SCH (08:42)
[2019-06-03] MEDS: THIAMINE HCL 200 MG/2 ML VIAL (J3411) IM SCH (08:42)
[2019-06-03] MEDS: NICOTINE 7 MG/24 HR TRANSDERMAL TD SCH (08:43)
[2019-06-03 12:00] VITALS: BP 136/84
[2019-06-03] MEDS: ACETAMINOPHEN 500 MG TAB PO PRN (12:34)
--- NOTE | 2019-06-03 13:36 | IPNPDOC ---
Subjective Date Seen The patient was seen on 06/03/19. at 1220pm Subjective Chief Complaint/HPI melena and abdominal pain Events since last encounter patient tolerated golytely and reports stools are now green in color abd pain is still present Objective Physical Examination General Exam: Positive: Alert, Cooperative, No Acute Distress Eye Exam: Positive: EOMI, Other Eye Symptoms (mild conjunctival palor) ENT Exam: Positive: Mucous membr. moist/pink Chest Exam: Positive: Clear to auscultation, Normal air movement Heart Exam: Positive: Rate Normal, Regular Rhythm Abdomen Exam: Positive: Soft, Tenderness (w light palpation), Other Extremity Exam: Positive: Other (nicotine staining of nails) Skin Exam: Positive: Other skin issue (spider angiomata on face) Neuro Exam: Positive: Normal Speech, Cranial Nerves 3-12 NL Psych Exam: Positive: Mental status NL, Mood NL Assessment /Plan Assessment is a 54 yr old M w a PMH of HTN, possible COPD 2/2 tobacco abuse and alcohol abuse who will be admitted to PCU for evaluation of acute blood loss anemia 2/2 GI bleed. 1.Iron Deficiency / Acute Blood Loss Anemia -hg trending down <7 -iron panel reviewed Plan: transfuse one unit, CLD w NPO after midnight, IV PPI, Octreotide drip, Ceftriaxone, EGD +/- C-scope tomorrow 2.Possible Enteritis/Colitis -per CT Plan:c/w abx 3.DIANA -baseline Cr 0.72 on May 23 Plan: IVF 4.Alcohol Abuse -denies w/d symptoms Plan: IV thiamine, IV folic acid, alcohol w/d precautions, ativan PRN per prot ocol 5.Tobacco Abuse Plan: nicotine patch patient will be changed to inpatient for PMH/PSH, FMH & please see H&P dated June 04 2019 DISPO: possibly Sun or AM pending pending endoscopy results Problems (1) Acute blood loss anemia Permanent Comment: Last Edited By: Monet Long MD on Jun 03, 2019 13:36 Status: Acute (2) GI bleed Permanent Comment: Last Edited By: Monet Long MD on Jun 03, 2019 13:36 Status: Acute Discussed With: Patient (3) Acute kidney injury Permanent Comment: Last Edited By: Monet Long MD on Jun 03, 2019 13:36 Status: Acute (4) Alcohol abuse Permanent Comment: Last Edited By: Monet Long MD on Jun 03, 2019 13:36 (5) Tobacco abuse Permanent Comment: Last Edited By: Monet Long MD on Jun 03, 2019 13:36 Status: Chronic Plan/VTE VTE Prophylaxis Ordered?: No (no GI px bc of acute GI bleed) VS, I&O, 24H, Fishbone Vital Signs/I&O Vital Signs Date Time Temp Pulse Resp B/P (MAP) Pulse Ox O2 Delivery O2 Flow Rate FiO2 06/03/19 12:00 98.0 73 18 136/84 (101) 97 06/02/19 15:59 Room Air I&O- Last 24 Hours up to 6 AM 06/03/19 05:59 Intake Total 630.2 ml Output Total 150 ml Balance 480.2 ml Laboratory Data 24H LABS Laboratory Tests 2 06/02/19 15:23: Nucleated Red Blood Cells % (auto) 0.0 06/03/19 04:48: Nucleated Red Blood Cells % (auto) 0.0, Immature Granulocyte % (Auto) 0.5, White Blood Count 6.4, Red Blood Count 2.02L, Hemoglobin 7.1L, Hematocrit 21.8L, Mean Corpuscular Volume 107.9H, Mean Corpuscular Hemoglobin 35.1H, Mean Corpuscular Hemoglobin Concent 32.6, Red Cell Distribution Width 14.9H, Platelet Count 386, Neutrophils (%) (Auto) 79.6H, Lymphocytes (%) (Auto) 7.8L, Monocytes (%) (Auto) 11.3H, Eosinophils (%) (Auto) 0.8, Basophils (%) (Auto) 0.0, Neutrophils # (Auto) 5.1, Lymphocytes # (Auto) 0.5L, Monocytes # (Auto) 0.7, Eosinophils # (Auto) 0.1, Basophils # (Auto) 0.0, Anion Gap 6L, Glomerular Filtration Rate 51.9L, Blood Urea Nitrogen 12, Creatinine 1.49H, Sodium Level 143#, Potassium Level 4.1, Chloride Level 111H, Carbon Dioxide Level 26, Calcium Level 10.1#, Aspartate Amino Transf (AST/SGOT) 33, Alanine Aminotransferase (ALT/SGPT) 19, Alkaline Phosphatase 55, Total Bilirubin 0.2#, Total Protein 5.1#L, Albumin 2.6L, Iron Level 30L, Total Iron Binding Capacity 228L, Transferrin % Saturation 13.2L, Ferritin 123, Albumin/Globulin Ratio 1.04 CBC/BMP Laboratory Tests 06/02/19 15:23 Red Blood Count 2.42 L, Mean Corpuscular Volume 109.5 H, Mean Corpuscular Hemoglobin 36.8 H, Mean Corpuscular Hemoglobin Concent 33.6, Red Cell Distribution Width 15.2 H 06/03/19 04:48 Red Blood Count 2.02 L, Mean Corpuscular Volume 107.9 H, Mean Corpuscular Hemoglobin 35.1 H, Mean Corpuscular Hemoglobin Concent 32.6, Red Cell Distribution Width 14.9 H, Neutrophils (%) (Auto) 79.6 H, Lymphocytes (%) (Auto) 7.8 L, Monocytes (%) (Auto) 11.3 H, Eosinophils (%) (Auto) 0.8, Basophils (%) (Auto) 0.0, Neutrophils # (Auto) 5.1, Lymphocytes # (Auto) 0.5 L, Monocytes # (Auto) 0.7, Eosinophils # (Auto) 0.1, Basophils # (Auto) 0.0, Calcium Level 10.1 #, Aspartate Amino Transf (AST/SGOT) 33, Alanine Aminotransferase (ALT/SGPT) 19, Alkaline Phosphatase 55, Total Bilirubin 0.2 #, Total Protein 5.1 #L, Albumin 2.6 L MONET LONG MD Jun 03, 2019 13:36
[2019-06-03] MEDS: D5W/0.9% SODIUM CHLORIDE 1,000 ML IV SCH (15:12)
[2019-06-03] MEDS: cefTRIAXone SOD 1 GM in D5W MINI-BAG PLUS 50 ML IV SCH (15:13)
[2019-06-03 16:00] VITALS: BP 136/81
[2019-06-03 17:25] LABS: BASO % 0.1 % (0.0-1.0); EOS # 0.1 10^3/uL (0.0-0.50); EOS % 1.7 % (0.0-3.0); HEMATOCRIT 29.5 % (42.0-52.0); LYMPH % 13.2 % (24.0-44.0); MEAN CORPUSCULAR HEMOGLOBIN 33.6 pg (27.0-33.0); MEAN CORPUSCULAR HGB CONC 32.5 g/dl (32.0-36.5); MEAN CORPUSCULAR VOLUME 103.1 fl (80.0-96.0); MONO # 1.2 10^3/uL (0.0-0.8); MONO % 16.5 % (0.0-5.0); NEUTROPHILS # 4.9 10^3/uL (1.8-7.7); NEUTROPHILS % 68.2 % (36.0-66.0); PLATELET COUNT, AUTOMATED 414 10^3/uL (150-450); RED BLOOD COUNT 2.86 10^6/uL (4.30-6.10); WHITE BLOOD COUNT 7.2 10^3/uL (4.0-10.0)
[2019-06-03 17:54] LABS: HEMOGLOBIN 9.6 g/dl (13.5-17.5)
[2019-06-03 20:00] VITALS: BP 162/95
[2019-06-03] MEDS: FOLIC ACID 1 MG in NS 50 ML IV SCH (20:34)
[2019-06-03 23:59] VITALS: BP 149/78
[2019-06-04] MEDS: PANTOPRAZOLE SODIUM 40 MG in D5W MINI-BAG PLUS 50 ML IV SCH ×4 (01:29→16:38)
[2019-06-04] MEDS: ACETAMINOPHEN 500 MG TAB PO PRN ×2 (01:31→20:39)
[2019-06-04 04:00] VITALS: BP 119/70
[2019-06-04 06:12] LABS: BASO % 0.2 % (0.0-1.0); EOS # 0.1 10^3/uL (0.0-0.50); EOS % 2.4 % (0.0-3.0); HEMATOCRIT 27.5 % (42.0-52.0); HEMOGLOBIN 9.2 g/dl (13.5-17.5); LYMPH # 0.8 10^3/uL (1.5-4.5); LYMPH % 13.8 % (24.0-44.0); MEAN CORPUSCULAR HEMOGLOBIN 33.9 pg (27.0-33.0); MEAN CORPUSCULAR HGB CONC 33.5 g/dl (32.0-36.5); MEAN CORPUSCULAR VOLUME 101.5 fl (80.0-96.0); MONO # 0.9 10^3/uL (0.0-0.8); NEUTROPHILS % 68.3 % (36.0-66.0); PLATELET COUNT, AUTOMATED 349 10^3/uL (150-450); RED BLOOD COUNT 2.71 10^6/uL (4.30-6.10); WHITE BLOOD COUNT 5.8 10^3/uL (4.0-10.0)
[2019-06-04 06:25] LABS: CALCIUM LEVEL 9.2 MG/DL (8.5-10.1); CREATININE FOR GFR 1.39 MG/DL (0.70-1.30); GLOMERULAR FILTRATION RATE 56.3 (>56); POTASSIUM SERUM 3.1 MEQ/L (3.5-5.1)
[2019-06-04] MEDS: D5W/0.9% SODIUM CHLORIDE 1,000 ML IV SCH (06:26)
[2019-06-04] MEDS: MORPHINE 4 MG/ML 1ML VIAL/SYRINGE (J2270) IV PRN ×3 (07:58→16:38)
[2019-06-04] MEDS: THIAMINE HCL 200 MG/2 ML VIAL (J3411) IM SCH (07:59)
[2019-06-04] MEDS: NICOTINE 7 MG/24 HR TRANSDERMAL TD SCH (07:59)
[2019-06-04 08:00] VITALS: BP 143/80
[2019-06-04] MEDS: amLODIPine 10 MG TAB PO SCH (08:03)
[2019-06-04] MEDS ORDERED: POTASSIUM PHOSPHATE INJ 30 MMOL in D5W 500 ML IV ONE (10:15)
--- NOTE | 2019-06-04 10:15 | IPNPDOC ---
Subjective Date Seen The patient was seen on 06/04/19. Time of service 7:23 PM Subjective Chief Complaint/HPI Melena and abdominal pain. Events since last encounter The patient had EGD and colonoscopy earlier on today and denies any acute complaints. Objective Physical Examination General Exam: Positive: Alert, Cooperative, No Acute Distress Eye Exam: Positive: EOMI, Other Eye Symptoms (mild conjunctival palor) ENT Exam: Positive: Mucous membr. moist/pink Chest Exam: Positive: Clear to auscultation, Normal air movement Heart Exam: Positive: Rate Normal, Regular Rhythm Abdomen Exam: Positive: Soft, Tenderness (w light palpation), Other Extremity Exam: Positive: Other (nicotine staining of nails) Skin Exam: Positive: Other skin issue (spider angiomata on face) Neuro Exam: Positive: Normal Speech, Cranial Nerves 3-12 NL Psych Exam: Positive: Mental status NL, Mood NL Assessment /Plan Assessment is a 54 yr old M w a PMH of HTN, possible COPD 2/2 tobacco abuse and alcohol abuse who will be admitted to PCU for evaluation of acute blood loss anemia 2/2 GI bleed. 1.Iron Deficiency / Acute Blood Loss Anemia -hg trending down <7 -iron panel reviewed -Status post EGD and colonoscopy Plan: Discontinue IV PPI, Octreotide drip, Ceftriaxone, 2.Possible Enteritis/Colitis -Ruled out -per CT Plan discontinue 3.DIANA -resolving -baseline Cr 0.72 on May 23 Plan: Stop IVF 4.Alcohol Abuse -denies w/d symptoms Plan: IV thiamine, IV folic acid, alcohol w/d precautions, ativan PRN per protocol 5.Tobacco Abuse Plan: nicotine patch 6. Hypokalemia. Likely secondary to GI losses. Plan: Repeat potassium DISPO home tomorrow morning after tolerating regular diet DVTpx none bc of recent LGI bleed Problems (1) Acute blood loss anemia Permanent Comment: Last Edited By: Monet Long MD on Jun 03, 2019 13:36 Status: Acute (2) GI bleed Permanent Comment: Last Edited By: Monet Long MD on Jun 03, 2019 13:36 Status: Acute Discussed With: Patient (3) Acute kidney injury Permanent Comment: Last Edited By: Monet Long MD on Jun 03, 2019 13:36 Status: Acute (4) Alcohol abuse Permanent Comment: Last Edited By: Monet Long MD on Jun 03, 2019 13:36 (5) Tobacco abuse Permanent Comment: Last Edited By: Monet Long MD on Jun 03, 2019 13:36 Status: Chronic Plan/VTE VTE Prophylaxis Ordered?: No (no GI px bc of acute GI bleed) VS, I&O, 24H, Fishbone Vital Signs/I&O Vital Signs Date Time Temp Pulse Resp B/P (MAP) Pulse Ox O2 Delivery O2 Flow Rate FiO2 06/04/19 08:03 64 143/80 06/04/19 07:58 20 06/04/19 04:00 97.6 97 06/02/19 15:59 Room Air I&O- Last 24 Hours up to 6 AM 06/04/19 06:00 Intake Total 1660.2 ml Output Total 0 ml Balance 1660.2 ml Laboratory Data 24H LABS Laboratory Tests 2 06/03/19 16:24: Immature Granulocyte % (Auto) 0.3, White Blood Count 7.2, Red Blood Count 2.86L, Hemoglobin 9.6#L, Hematocrit 29.5L, Mean Corpuscular Volume 103.1H, Mean Co rpuscular Hemoglobin 33.6H, Mean Corpuscular Hemoglobin Concent 32.5, Red Cell Distribution Width 16.1H, Platelet Count 414, Neutrophils (%) (Auto) 68.2H, Lymphocytes (%) (Auto) 13.2L, Monocytes (%) (Auto) 16.5H, Eosinophils (%) (Auto) 1.7, Basophils (%) (Auto) 0.1, Neutrophils # (Auto) 4.9, Lymphocytes # (Auto) 1.0L, Monocytes # (Auto) 1.2H, Eosinophils # (Auto) 0.1, Basophils # (Auto) 0.0, Nucleated Red Blood Cells % (auto) 0.0 06/04/19 05:33: Immature Granulocyte % (Auto) 0.3, White Blood Count 5.8, Red Blood Count 2.71L, Hemoglobin 9.2L, Hematocrit 27.5L, Mean Corpuscular Volume 101.5H, Mean Corpuscular Hemoglobin 33.9H, Mean Corpuscular Hemoglobin Concent 33.5, Red Cell Distribution Width 16.5H, Platelet Count 349, Neutrophils (%) (Auto) 68.3H, Lymphocytes (%) (Auto) 13.8L, Monocytes (%) (Auto) 15.0H, Eosinophils (%) (Auto) 2.4, Basophils (%) (Auto) 0.2, Neutrophils # (Auto) 4.0, Lymphocytes # (Auto) 0.8L, Monocytes # (Auto) 0.9H, Eosinophils # (Auto) 0.1, Basophils # (Auto) 0.0, Nucleated Red Blood Cells % (auto) 0.0, Anion Gap 7L, Glomerular Filtration Rate 56.3, Blood Urea Nitrogen 6L, Creatinine 1.39H, Sodium Level 139, Potassium Level 3.1#L, Chloride Level 107, Carbon Dioxide Level 25, Calcium Level 9.2 CBC/BMP Laboratory Tests 06/03/19 16:24 Red Blood Count 2.86 L, Mean Corpuscular Volume 103.1 H, Mean Corpuscular Hemoglobin 33.6 H, Mean Corpuscular Hemoglobin Concent 32.5, Red Cell Distribution Width 16.1 H, Neutrophils (%) (Auto) 68.2 H, Lymphocytes (%) (Auto) 13.2 L, Monocytes (%) (Auto) 16.5 H, Eosinophils (%) (Auto) 1.7, Basophils (%) (Auto) 0.1, Neutrophils # (Auto) 4.9, Lymphocytes # (Auto) 1.0 L, Monocytes # (A uto) 1.2 H, Eosinophils # (Auto) 0.1, Basophils # (Auto) 0.0 06/04/19 05:33 Red Blood Count 2.71 L, Mean Corpuscular Volume 101.5 H, Mean Corpuscular Hemoglobin 33.9 H, Mean Corpuscular Hemoglobin Concent 33.5, Red Cell Distribution Width 16.5 H, Neutrophils (%) (Auto) 68.3 H, Lymphocytes (%) (Auto) 13.8 L, Monocytes (%) (Auto) 15.0 H, Eosinophils (%) (Auto) 2.4, Basophils (%) (Auto) 0.2, Neutrophils # (Auto) 4.0, Lymphocytes # (Auto) 0.8 L, Monocytes # (Auto) 0.9 H, Eosinophils # (Auto) 0.1, Basophils # (Auto) 0.0, Calcium Level 9.2 MONET LONG MD Jun 04, 2019 10:15
[2019-06-04] MEDS ORDERED: KCL 10MEQ/100ML SWI (KRUN) 10 MEQ in APPROPRIATE DILUENT 1 EA IV ONE (11:00)
[2019-06-04] MEDS ORDERED: PROPOFOL 200 MG/20 ML VIAL As Ordered ONE (11:58)
[2019-06-04] MEDS ORDERED: LIDOCAINE 2% INJ 100 MG/5 ML SDV (FOR ANES.) As Ordered ONE (11:58)
[2019-06-04 12:00] VITALS: BP 133/75
--- NOTE | 2019-06-04 14:20 | ROOR ---
Patient Name: Santhosh Josue Procedure Date: 06/04/2019 2:06 PM Date of : 1965 Age: 54 Room: [facility] Gender: Male Note Status: Finalized Procedure: Upper Endoscopy + Biopsies Indications: Melena, Suspected upper gastrointestinal bleeding, Gastrointestinal bleeding of unknown origin Providers: Сергей Bales MD Referring MD: Aditi STROUD NP Requesting Provider: Medicines: Monitored Anesthesia Care Complications: No immediate complications. Procedure: Pre-Anesthesia Assessment: - The heart rate, respiratory rate, oxygen saturations, blood pressure, adequacy of pulmonary ventilation, and response to care were monitored throughout the procedure. The Endoscope was introduced through the mouth, and advanced to the second part of duodenum. The upper GI endoscopy was accomplished without difficulty. The patient tolerated the procedure well. Findings: The Z-line was irregular and was found 37 cm from the incisors. Three non-bleeding cratered gastric ulcers with no stigmata of bleeding were found in the gastric antrum. Biopsies were taken with a cold forceps for Helicobacter pylori testing. One non-bleeding cratered duodenal ulcer with no stigmata of bleeding was found in the duodenal bulb. The exam was otherwise without abnormality. Impression: - Z-line irregular, 37 cm from the incisors. - Non-bleeding gastric ulcers with no stigmata of bleeding. Biopsied. - One non-bleeding duodenal ulcer with no stigmata of bleeding. - The examination was otherwise normal. Recommendation: - Patient has a contact number available for emergencies. The signs and symptoms of potential delayed complications were discussed with the patient. Return to normal activities tomorrow. Written discharge instructions were provided to the patient. - Full liquid diet. - Return patient to [facility] for [facility] care. - Continue present medications. - Await pathology results. - Telephone GI clinic for pathology results in 1 week. - Return to referring physician. - The findings and recommendations were discussed with the referring physician. Сергей Bales MD Сергей Bales MD 06/04/2019 2:19:56 PM Electronically signed by Сергей Bales MD Number of Addenda: 0 Note Initiated On: 06/04/2019 2:06 PM Estimated Blood Loss: Estimated blood loss: none.
--- NOTE | 2019-06-04 14:38 | ROOR ---
Patient Name: Santhosh Josue Procedure Date: 06/04/2019 2:06 PM Date of : 1965 Age: 54 Room: [facility] Gender: Male Note Status: Finalized Procedure: Total Colonoscopy to Cecum + Hot Snare Polypectomy + Hemoclip Indications: Iron deficiency anemia secondary to chronic blood loss, Unexplained iron deficiency anemia Providers: Сергей Bales MD Referring MD: Aditi STROUD NP Requesting Provider: Medicines: Monitored Anesthesia Care Complications: No immediate complications. Procedure: Pre-Anesthesia Assessment: - The heart rate, respiratory rate, oxygen saturations, blood pressure, adequacy of pulmonary ventilation, and response to care were monitored throughout the procedure. The Colonoscope was introduced through the anus and advanced to the cecum, identified by appendiceal orifice and ileocecal valve. The colonoscopy was performed without difficulty. The patient tolerated the procedure well. The quality of the bowel preparation was fair. Findings: The perianal and digital rectal examinations were normal. Non-bleeding internal hemorrhoids were found during retroflexion. The hemorrhoids were small and Grade I (internal hemorrhoids that do not prolapse). A medium polyp was found in the rectum. The polyp was sessile. The polyp was removed with a hot snare. Resection and retrieval were complete. To prevent bleeding after the polypectomy, one hemostatic clip was successfully placed (MR conditional). There was no bleeding at the end of the procedure. The exam was otherwise without abnormality. Impression: - Preparation of the colon was fair. - Non-bleeding internal hemorrhoids. - One medium polyp in the rectum, removed with a hot snare. Resected and retrieved. Clip (MR conditional) was placed. - The examination was otherwise normal. - The exam was otherwise normal to the cecum. Recommendation: - Patient has a contact number available for emergencies. The signs and symptoms of potential delayed complications were discussed with the patient. Return to normal activities tomorrow. Written discharge instructions were provided to the patient. - Return patient to [facility] for ongoing care. - Continue present medications. - Await pathology results. - Telephone GI clinic for pathology results in 1 week. - Repeat colonoscopy in 1 year for surveillance based on pathology results. - Return to referring physician. - The findings and recommendations were discussed with the patient's family. Сергей Bales MD Сергей Bales MD 06/04/2019 2:37:38 PM Electronically signed by Сергей Bales MD Number of Addenda: 0 Note Initiated On: 06/04/2019 2:06 PM Estimated Blood Loss: Estimated blood loss: none.
[2019-06-04 15:00] VITALS: BP 135/77
[2019-06-04 16:00] VITALS: BP 137/64
[2019-06-04] MEDS: cefTRIAXone SOD 1 GM in D5W MINI-BAG PLUS 50 ML IV SCH (16:38)
--- NOTE | 2019-06-04 17:18 | CR ---
DATE OF CONSULTATION: 06/03/2019 INDICATION FOR CONSULTATION: Anemia, gastrointestinal (GI) bleeding of unknown etiology. This is a 54-year white male who presents with a two week history of apparent black tarry stools with lower abdominal cramps for approximately a week to ten days prior to admission. The patient relates that the lower abdominal pain kept him awake at night. He is a heavy drinker and continues to drink alcohol daily. He apparently has been using ibuprofen regularly for pain. He has no complaints of hematemesis, but he did have some bouts of melena. No fevers, night sweats or shaking chills. No nausea or vomiting. The patient is on Drisdol at home and Ellipta and amlodipine daily. His as needed medications are albuterol, Pepto-Bismol, calcium carbonate and Tylenol. The patient has no known declared allergies. PAST MEDICAL HISTORY: 1. Positive for chronic obstructive pulmonary disease (COPD). 2. Hypertension. PAST SURGICAL HISTORY: Some type of jaw operation. SOCIAL HISTORY: Cigarettes: The patient is current smoker. Alcohol: Daily. REVIEW OF SYSTEMS: The patient is not in atrial fibrillation. An 11-point review of systems noncontributory. PHYSICAL EXAMINATION: Patient is a well-developed, well-nourished white male in no obvious acute distress. Appears stated age. Chest is clear to auscultation. Cardiovascular exam showed a regular rhythm. No murmurs or gallops. Normal physiological split S1, S2. Abdomen soft, nontender. No masses, guarding, rebound, hepatosplenomegaly. Bowel sounds are positive. LABORATORY STUDIES: On admission includes a white count 70,000, hemoglobin and hematocrit (H and H) was 8.9 and 26.4; his count came down to 7.1 and 21.8. He was given 1 unit of packed cells and this came up to 9.6 and 29.5. The patient's liver functions are normal. Albumin is 2.6 today. Lipase was normal. BUN was normal. Creatinine was 1.49. His INR was 0.94. IMAGING STUDIES CT of the abdomen and pelvis on 06/02/2019 was essentially suggestive of a small distension, wall thickening in the left upper quadrant and there is some mild colonic wall thickening in the descending colon and sigmoid colon. The findings were felt to be compatible with enteritis and colitis. Occasional diverticula was seen. No CT evidence for diverticulitis. No adenopathy or masses were seen. ANALYSIS: 1. Anemia. 2. Melena of unknown etiology. PLAN: Will be to set the patient up for an upper and lower endoscopy for further evaluation of his bleeding source and abnormal imaging of the CT. Patient states he has never had a colonoscopy was there is no apparent history for colon cancer per patient. Esophagogastroduodenoscopy (EGD) GD and colonoscopy to be scheduled. The patient is having a bowel prep today.
[2019-06-04 20:00] VITALS: BP 129/76
--- NOTE | 2019-06-04 20:07 | DS.PDOC ---
Discharge Summary General Date of Admission Jun 02, 2019 at 14:42 Date of Discharge 06/05/19 Primary Care Physician: A Attending Physician: MONET EDUARDO MD Specialist/Consultants Involve: Сергей Bales Discharge Summary PROCEDURES PERFORMED DURING STAY: EGD and colonoscopy ADMITTING DIAGNOSES: 1 . Acute blood loss anemia 2. GI bleed 3. Acute renal insufficiency DISCHARGE DIAGNOSES: 1. Blood loss anemia possibly secondary to hemorrhoids and gastric ulcers 2 Mild renal insufficiency, resolving. 3 Mild hypokalemia COMPLICATIONS/CHIEF COMPLAINT: Acute Blood Loss Anemia. HISTORY OF PRESENT ILLNESS This is a 54-year-old male who initially presented with complaints of melena associated with stomach pain in the setting of NSAID abuse. He was found to have a hemoglobin of HOSPITAL COURSE: He received 1 unit of blood tests hemoglobin dropped to 7.1 post transfusion his hemoglobin was 9.6 and 9.2 the day after. He had an EGD and colonoscopy which found hemorrhoids . A small polyp, gastric ulcers, and duodenal ulcers. A biopsy of the polyp was taken, the results are pending. He was examined on June 04 at 635AM and reported being ready to go home; his electrolytes were repleted prior to discharge. DISCHARGE MEDICATIONS: Please see below. ALLERGIES: Please see below. PHYSICAL EXAMINATION ON DISCHARGE: VITAL SIGNS: Please see below. GENERAL: Well-nourished, well-developed, no acute distress HEENT: No cephalic, atraumatic CARDIOVASCULAR EXAMINATION: Regular rate and rhythm. No murmurs, rubs and gallops RESPIRATORY EXAMINATION clear to auscultation bilaterally ABDOMINAL EXAMINATION: Flat, soft and nontender EXTREMITIES: Intact 4 extremities SKIN: Spider angiomata on nose and cheeks NEUROLOGICAL EXAMINATION: CN II-12 grossly intact. Speech not dysarthric PSYCHIATRIC EXAMINATION: Alert and oriented 3, able to understand and follow commands LABORATORY DATA: Please see below. IMAGING: CT of the abdomen showed colonic wall thickening in the descending and sigmoid colon. The radiologist suggested that this may be enteritis or colitis in the appropriate clinical setting PROGNOSIS: Fair ACTIVITY: [As tolerated]. DIET: Resume regular diet tomorrow DISCHARGE PLAN: Home DISPOSITION: . DISCHARGE INSTRUCTIONS: Patient was instructed to avoid NSAIDs and follow-up with his primary care doctor within the next week. He was also instructed to follow up with his senior informatica developer within the next one month to follow-up on the pathology report. ITEMS TO FOLLOWUP ON ON OUTPATIENT: 1. Pathology results of colonic polyp. DISCHARGE CONDITION: [Stable]. TIME SPENT ON DISCHARGE: Greater than 15 minutes Vital Signs/I&Os Vital Signs Date Time Temp Pulse Resp B/P (MAP) Pulse Ox O2 Delivery O2 Flow Rate FiO2 06/04/19 16:48 20 06/04/19 16:00 97.2 69 137/64 (88) 97 06/02/19 15:59 Room Air I&O- Last 24 Hours up to 6 AM 06/04/19 05:59 Intake Total 1840.2 ml Output Total 0 ml Balance 1840.2 ml Laboratory Data Labs 24H Laboratory Tests 2 06/04/19 05:33: Immature Granulocyte % (Auto) 0.3, White Blood Count 5.8, Red Blood Count 2.71L, Hemoglobin 9.2L, Hematocrit 27.5L, Mean Corpuscular Volume 101.5H, Mean Corpuscular Hemoglobin 33.9H, Mean Corpuscular Hemoglobin Concent 33.5, Red Cell Distribution Width 16.5H, Platelet Count 349, Neutrophils (%) (Auto) 68.3H, Lymphocytes (%) (Auto) 13.8L, Monocytes (%) (Auto) 15.0H, Eosinophils (%) (Auto) 2.4, Basophils (%) (Auto) 0.2, Neutrophils # (Auto) 4.0, Lymphocytes # (Auto) 0.8L, Monocytes # (Auto) 0.9H, Eosinophils # (Auto) 0.1, Basophils # (Auto) 0.0, Nucleated Red Blood Cells % (auto) 0.0, Anion Gap 7L, Glomerular Filtration Rate 56.3, Blood Urea Nitrogen 6L, Creatinine 1.39H, Sodium Level 139, Potassium Level 3.1#L, Chloride Level 107, Carbon Dioxide Level 25, Calcium Level 9.2 CBC/BMP Laboratory Tests 06/04/19 05:33 Red Blood Count 2.71 L, Mean Corpuscular Volume 101.5 H, Mean Corpuscular Hemoglobin 33.9 H, Mean Corpuscular Hemoglobin Concent 33.5, Red Cell Dist ribution Width 16.5 H, Neutrophils (%) (Auto) 68.3 H, Lymphocytes (%) (Auto) 13.8 L, Monocytes (%) (Auto) 15.0 H, Eosinophils (%) (Auto) 2.4, Basophils (%) (Auto) 0.2, Neutrophils # (Auto) 4.0, Lymphocytes # (Auto) 0.8 L, Monocytes # (Auto) 0.9 H, Eosinophils # (Auto) 0.1, Basophils # (Auto) 0.0, Calcium Level 9.2 Discharge Medications Scheduled Amlodipine Besylate (Amlodipine Besylate) 10 Mg Tab, 10 MG PO DAILY, (Reported) Ergocalciferol (Vitamin D2) (Drisdol) 50,000 Unit Capsule, 50,000 UNIT PO QWEEK, (Reported) SUNDAYS Umeclidinium [place] (Incruse Ellipta) 62.5 Mcg Blst.w.dev, 1 PUFF INH DAILY, (Reported) Scheduled PRN Acetaminophen (Acetaminophen) 500 Mg Tablet, 1,000 MG PO BID PRN for PAIN, (Reported) Albuterol Sulfate (Ventolin Hfa) 18 Gm Hfa.aer.ad, 2 PUFF INH Q4H PRN for SHORTNESS OF BREATH, (Reported) Bismuth Subsalicylate (Pepto-Bismol) 262 Mg Tab.chew, 262 MG PO Q6H PRN for HEART BURN , (Reported) Calcium Carbonate (Tums) 200 Mg Tab.chew, 200 MG PO Q4H PRN for HEART BURN, (Reported) Allergies Coded Allergies: No Known Allergies (Unverified , 02/03/19) MONET EDUARDO MD Jun 04, 2019 20:07
[2019-06-05] VITALS: BP 122/78
[2019-06-05 04:00] VITALS: BP 132/82
[2019-06-05] MEDS ORDERED: ACETAMINOPHEN TAB 650MG DOSE (2X325MG) PO ONE (05:00)
[2019-06-05 05:29] LABS: HEMATOCRIT 24.6 % (42.0-52.0); HEMOGLOBIN 8.2 g/dl (13.5-17.5); MEAN CORPUSCULAR HEMOGLOBIN 33.5 pg (27.0-33.0); MEAN CORPUSCULAR HGB CONC 33.3 g/dl (32.0-36.5); MEAN CORPUSCULAR VOLUME 100.4 fl (80.0-96.0); PLATELET COUNT, AUTOMATED 310 10^3/uL (150-450); RED BLOOD COUNT 2.45 10^6/uL (4.30-6.10); WHITE BLOOD COUNT 4.8 10^3/uL (4.0-10.0)
[2019-06-05 05:51] LABS: BLOOD UREA NITROGEN 6 MG/DL (7-18); CALCIUM LEVEL 8.8 MG/DL (8.5-10.1); CARBON DIOXIDE LEVEL 25 MEQ/L (21-32); CHLORIDE LEVEL 107 MEQ/L (98-107); CREATININE FOR GFR 1.29 MG/DL (0.70-1.30); GLOMERULAR FILTRATION RATE > 60.0 (>56); GLUCOSE, FASTING 79 MG/DL (70-100); MAGNESIUM LEVEL 1.3 MG/DL (1.8-2.4); SODIUM LEVEL 140 MEQ/L (136-145)
[2019-06-05] MEDS ORDERED: POTASSIUM CHL PWD 20 MEQ PACKET PO ONE (06:30)
[2019-06-05] MEDS ORDERED: MAGNESIUM OXIDE 400 MG TAB (MAG-OX) PO ONE (06:30)
[2019-06-05] MEDS ORDERED: KCL 10MEQ/100ML SWI (KRUN) 10 MEQ in APPROPRIATE DILUENT 1 EA IV ONE (06:30)
[2019-06-05 08:00] VITALS: BP 138/76
[2019-06-05] MEDS: NICOTINE 7 MG/24 HR TRANSDERMAL TD SCH (08:01)
[2019-06-05 08:02] VITALS: BP 136/67
[2019-06-05] MEDS: amLODIPine 10 MG TAB PO SCH (08:02)
[2019-06-05 10:02] VITALS: BP 131/83
[2019-06-05] MEDS ORDERED: SUCRALFATE 1 GM TAB PO SCH (12:00)
== END 2019-06-05 10:27 | disposition home or self-care (01) | DRG 254 ==
LOC: M ED 09:59 → M ED INP 14:42 → M PCU 16:47
PROVIDERS: ADMIT Internal Medicine; ATTEND Internal Medicine
PROC: 30233N1 Transfusion of Nonautologous Red Blood Cells into Peripheral Vein, Percutaneous Approach (ICD-10-PCS; principal; 2019-06-03)
PROC: 0DB68ZX Excision of Stomach, Via Natural or Artificial Opening Endoscopic, Diagnostic (ICD-10-PCS; 2019-06-04)
PROC: 0DBP8ZX Excision of Rectum, Via Natural or Artificial Opening Endoscopic, Diagnostic (ICD-10-PCS; 2019-06-04)
DX: K64.0 First degree hemorrhoids (principal); N17.9 Acute kidney failure, unspecified; K25.4 Chronic or unspecified gastric ulcer with hemorrhage; D62 Acute posthemorrhagic anemia; I10 Essential (primary) hypertension; F17.200 Nicotine dependence, unspecified, uncomplicated; F10.10 Alcohol abuse, uncomplicated; E87.6 Hypokalemia; K62.1 Rectal polyp; J44.9 Chronic obstructive pulmonary disease, unspecified

== ENCOUNTER → 2019-06-12 | Outpatient (CLI) | payer OTHER ==
[~2019-06-12] MED LIST changes: +PEPT262C2 PO; +TUMS500C PO
--- NOTE | 2019-06-12 15:01 | REP ---
Clinical: Right lower extremity pain and swelling . Technique: Lewis scale and color Doppler evaluation using linear high frequency transducer. Findings: Ultrasound examination of the right lower extremity deep venous structures from the common femoral vein to the popliteal vein demonstrates normal compressibility flow and wave patterns in response to respiration and augmentation. There is no evidence for deep venous thrombosis. Impression: No evidence for deep venous thrombosis. Electronically Signed by Deng Moya MD 06/12/2019 02:53 P
== END ==
LOC: M RAD 14:09
PROVIDERS: ATTEND Internal Medicine Pulmonary Disease
DX: M79.604 Pain in right leg (principal)

== ENCOUNTER → 2019-09-29 | Outpatient (REF) | payer OTHER, MEDICAID ==
[2019-09-29 20:08] LABS: BASO % 0.6 % (0.0-1.0); EOS # 0.1 10^3/uL (0.0-0.5); EOS % 1.7 % (0.0-3.0); HEMATOCRIT 46.5 % (42.0-52.0); HEMOGLOBIN 15.7 g/dl (13.5-17.5); LYMPH # 1.5 10^3/uL (1.5-5.0); LYMPH % 30.7 % (24.0-44.0); MEAN CORPUSCULAR HEMOGLOBIN 34.6 pg (27.0-33.0); MEAN CORPUSCULAR HGB CONC 33.8 g/dl (32.0-36.5); MEAN CORPUSCULAR VOLUME 102.4 fl (80.0-96.0); MONO # 0.6 10^3/uL (0.0-0.8); MONO % 13.2 % (0.0-5.0); NEUTROPHILS # 2.5 10^3/uL (1.5-8.5); NEUTROPHILS % 53.4 % (36.0-66.0); PLATELET COUNT, AUTOMATED 218 10^3/uL (150-450); RED BLOOD COUNT 4.54 10^6/uL (4.30-6.10); WHITE BLOOD COUNT 4.8 10^3/uL (4.0-10.0)
[2019-09-29 20:12] LABS: ALBUMIN 3.9 GM/DL (3.2-5.2); ALT/SGPT 20 U/L (12-78); BILIRUBIN,TOTAL 0.3 MG/DL (0.2-1.0); BLOOD UREA NITROGEN 5 MG/DL (7-18); CARBON DIOXIDE LEVEL 26 MEQ/L (21-32); CHLORIDE LEVEL 108 MEQ/L (98-107); CREATININE FOR GFR 0.76 MG/DL (0.70-1.30); GLOMERULAR FILTRATION RATE > 60.0 (>56); GLUCOSE, FASTING 75 MG/DL (70-100); POTASSIUM SERUM 3.9 MEQ/L (3.5-5.1); SODIUM LEVEL 140 MEQ/L (136-145); TOTAL PROTEIN 7.8 GM/DL (6.4-8.2)
== END ==
LOC: M LAB REF 19:24
PROVIDERS: ATTEND Nurse Practitioner Family
DX: M79.672 Pain in left foot (principal)

== ENCOUNTER → 2019-10-06 | Outpatient (CLI) | payer OTHER, MEDICAID ==
[2019-10-06 16:48] LABS: HEMATOCRIT 44.2 % (42.0-52.0); HEMOGLOBIN 15.5 g/dl (13.5-17.5); MEAN CORPUSCULAR HEMOGLOBIN 35.6 pg (27.0-33.0); MEAN CORPUSCULAR HGB CONC 35.1 g/dl (32.0-36.5); MEAN CORPUSCULAR VOLUME 101.6 fl (80.0-96.0); PLATELET COUNT, AUTOMATED 213 10^3/uL (150-450); RED BLOOD COUNT 4.35 10^6/uL (4.30-6.10); WHITE BLOOD COUNT 6.1 10^3/uL (4.0-10.0)
== END ==
LOC: M WUC 13:33
PROVIDERS: ATTEND Internal Medicine Gastroenterology
DX: K27.9 Peptic ulcer, site unspecified, unspecified as acute or chronic, without hemorrhage or perforation (principal); D64.9 Anemia, unspecified

== ENCOUNTER → 2019-12-12 | Outpatient (CLI) | payer MEDICAID, OTHER ==
--- NOTE | 2019-12-12 16:25 | REPVR ---
PROCEDURE INFORMATION: Exam: CT Chest Without Contrast Exam date and time: 12/12/2019 3:53 PM Age: 54 years old Clinical indication: Abnormal findings; Lung mass or nodule; Single or solitary nodule; Additional info: Solitary pulmonary nodule TECHNIQUE: Imaging protocol: Computed tomography of the chest without contrast. 3D rendering: MIP and/or 3D reconstructed images were created by the technologist. Radiation optimization: All CT scans at this facility use at least one of these dose optimization techniques: automated exposure control; mA and/or kV adjustment per patient size (includes targeted exams where dose is matched to clinical indication); or iterative reconstruction. COMPARISON: CT Chest with contrast 05/22/2019 12:19 PM FINDINGS: Lungs: There is a 7 mm round nodule right upper lung field anterior in position and unchanged since the CT of 05/22/2019. Normal appearing pancreas. The lungs appear clear. Pleural space: Unremarkable. No pneumothorax. No pleural effusion. Heart: The heart is normal in size and there is no pericardial effusion. Coronary artery calcification is noted. Mediastinum: Normal trachea. Aorta: The aorta appears normal in size. Lymph nodes: I do not detect significant mediastinal lymphadenopathy. Adrenals: Normal appearing adrenal glands. 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 There is a healed rib fracture on the left. There is a chronically nonunited fracture of the posterior aspect of the left 11th rib. Soft tissues: Unremarkable. IMPRESSION: 7 mm nodule anterior right mid lung field unchanged since 05/22/2019 and most consistent with a benign nodule. The next follow-up examination should be in approximately 8 months. 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 Electronically signed by: Yuri Leon On 12/12/2019 16:27:08 PM
== END ==
LOC: M RAD 15:29
PROVIDERS: ATTEND Internal Medicine Pulmonary Disease
DX: R91.1 Solitary pulmonary nodule (principal)

== ENCOUNTER → 2020-12-02 | Outpatient (REF) | payer OTHER, MEDICARE ==
[~2020-12-02] MED LIST changes: -AMLO10TA5 PO; +AMLO1TAB25 PO; -LISI-538 PO; +LISI20TA33 PO
[2020-12-02 17:19] LABS: BASO % 0.1 % (0.0-1.0); EOS % 0.1 % (0.0-3.0); HEMATOCRIT 44.8 % (42.0-52.0); HEMOGLOBIN 15.2 g/dl (13.5-17.5); LYMPH % 12.3 % (24.0-44.0); MEAN CORPUSCULAR HEMOGLOBIN 34.8 pg (27.0-33.0); MEAN CORPUSCULAR HGB CONC 33.9 g/dl (32.0-36.5); MEAN CORPUSCULAR VOLUME 102.5 fl (80.0-96.0); MONO # 0.6 10^3/uL (0.0-0.8); MONO % 7.6 % (0.0-5.0); NEUTROPHILS # 6.2 10^3/uL (1.5-8.5); NEUTROPHILS % 79.6 % (36.0-66.0); PLATELET COUNT, AUTOMATED 204 10^3/uL (150-450); RED BLOOD COUNT 4.37 10^6/uL (4.30-6.10); WHITE BLOOD COUNT 7.8 10^3/uL (4.0-10.0)
[2020-12-02 17:40] LABS: ALBUMIN 2.6 GM/DL (3.2-5.2); ALT/SGPT 30 U/L (12-78); BILIRUBIN,TOTAL 1.7 MG/DL (0.2-1.0); BLOOD UREA NITROGEN 6 MG/DL (7-18); CALCIUM LEVEL 9.6 MG/DL (8.5-10.1); CARBON DIOXIDE LEVEL 24 MEQ/L (21-32); CHLORIDE LEVEL 98 MEQ/L (98-107); CHOLESTEROL LEVEL 189 MG/DL (<200); CHOLESTEROL RISK RATIO 3.048 (<5); CREATININE FOR GFR 0.81 MG/DL (0.70-1.30); GLOMERULAR FILTRATION RATE > 60.0 (>56); GLUCOSE, FASTING 95 MG/DL (70-100); HDL CHOLESTEROL 62 MG/DL (>40); LDL CHOLESTEROL 106 MG/DL (<100); NON-HDL-C 127 MG/DL; POTASSIUM SERUM 3.8 MEQ/L (3.5-5.1); SODIUM LEVEL 132 MEQ/L (136-145); TOTAL PROTEIN 6.6 GM/DL (6.4-8.2); TRIGLYCERIDES LEVEL 105 MG/DL (<150)
[2020-12-02 17:43] LABS: TOTAL 25(OH) VITAMIN D 65.2 NG/ML (30.0-100.0)
== END ==
LOC: M LAB REF 16:30
PROVIDERS: ATTEND Nurse Practitioner Family
DX: D64.9 Anemia, unspecified (principal); F10.20 Alcohol dependence, uncomplicated; F17.200 Nicotine dependence, unspecified, uncomplicated; M79.604 Pain in right leg

== ENCOUNTER → 2020-12-06 | Outpatient (CLI) | payer OTHER ==
--- NOTE | 2020-12-06 09:29 | REP ---
INDICATION: OTHER SPECIFIED SOFT TISSUE DISORDERS COMPARISON: None. TECHNIQUE: AP, lateral, bilateral oblique views right foot. FINDINGS: Generalized age-related changes are appreciated. No obvious acute fracture or dislocation identified. No subcutaneous emphysema or foreign body. IMPRESSION: Age-related degenerative changes. No acute fracture or dislocation. <Electronically signed by Deng Moya > 12/06/20 [id number]
--- NOTE | 2020-12-06 09:43 | REP ---
INDICATION: OTHER SPECIFIED SOFT TISSUE DISORDERS/XR COMPARISON: None. TECHNIQUE: Lewis scale and color Doppler evaluation right lower extremity using linear high frequency transducer. FINDINGS: Ultrasound examination of the right lower extremity deep venous structures from the common femoral vein to the popliteal vein demonstrates normal compressibility flow and wave patterns in response to respiration and augmentation. There is no evidence for deep venous thrombosis. IMPRESSION: No evidence for deep venous thrombosis. <Electronically signed by Deng Moya > 12/06/20 [id number]
== END ==
LOC: M RAD 08:56
PROVIDERS: ATTEND Nurse Practitioner Family
DX: M79.89 Other specified soft tissue disorders (principal); M19.071 Primary osteoarthritis, right ankle and foot

== ENCOUNTER → 2021-05-31 | Outpatient (CLI) | payer OTHER ==
--- NOTE | 2021-05-31 14:19 | REP ---
INDICATION: TOBACCO USE. COMPARISON: CT 12/12/2019, 05/22/2019, two-view chest 05/22/2019 TECHNIQUE: Low-dose CT lung screening protocol FINDINGS: On image 31 there is a 7 mm subpleural solid nodule unchanged for the past 2 years. It does not have any calcification. Some minor dependent atelectatic change deep sulcus of the right lower lobe. Rest of the right lung was clear. The left lung shows only minor fibro atelectatic change in the inferior lingular segment at the anterior left lung base and a small ground-glass opacity in the posterior aspect of the left upper lobe, stable. No other parenchymal findings. There is some cylindrical bronchiectatic change bilaterally. No effusion, pleural plaque, calcified plaque or apical pleural scarring. No gross cardiomegaly IMPRESSION: 1. Lung rads category 2 benign, benign finding. Stable 7 mm solid nodule in right upper lobe these past 2 years. Patients with this category of findings have less than 1% chance of malignancy at the time of the examination. 2. No other significant or new/acute finding. <Electronically signed by Kris Valera > 05/31/21 [id number]
== END ==
LOC: M RAD 12:40
PROVIDERS: ATTEND Nurse Practitioner Family
DX: F17.200 Nicotine dependence, unspecified, uncomplicated (principal)

== ENCOUNTER → 2022-09-27 | Outpatient (REF) | payer OTHER ==
[~2022-09-27] MED LIST changes: -DOXY-350 PO; +DOXY-444 PO
[2022-09-27 18:01] LABS: ALBUMIN 3.6 G/DL (3.2-5.2); ALT/SGPT 15 U/L (7.0-40); BILIRUBIN,TOTAL 0.8 MG/DL (0.3-1.2); BLOOD UREA NITROGEN 6 MG/DL (9-23); CALCIUM LEVEL 10.5 MG/DL (8.5-10.1); CARBON DIOXIDE LEVEL 23 MMOL/L (20-31); CHLORIDE LEVEL 99 MMOL/L (98-107); CHOLESTEROL LEVEL 171 MG/DL (<200); CHOLESTEROL RISK RATIO 2.34 (<5); CREATININE FOR GFR 0.72 MG/DL (0.70-1.30); GLOMERULAR FILTRATION RATE > 60.0 (>56); GLUCOSE, FASTING 75 MG/DL (60-100); LDL CHOLESTEROL 76.2 MG/DL (<100); NON-HDL-C 98 MG/DL; POTASSIUM SERUM 4.5 MMOL/L (3.5-5.1); SODIUM LEVEL 133 MMOL/L (136-145); THYROID STIMULATING HORMONE 2.252 uIU/ML (0.55-4.78); TOTAL PROTEIN 6.9 G/DL (5.7-8.2); TRIGLYCERIDES LEVEL 109 MG/DL (<150)
== END ==
LOC: M LAB REF 16:23
PROVIDERS: ATTEND Family Medicine Addiction Medicine
DX: I10 Essential (primary) hypertension (principal)

== ENCOUNTER 2022-12-13 14:51 | Emergency (ER) | payer OTHER ==
[~2022-12-13] VITALS: Ht 167.6 cm; Wt 57.0 kg
[2022-12-13 14:56] VITALS: BP 155/63
== END 2022-12-13 18:16 | disposition left against medical advice (07) ==
LOC: M ED 14:51
DX: Z53.21 Procedure and treatment not carried out due to patient leaving prior to being seen by health care provider (principal)

== ENCOUNTER 2023-05-07 10:57 | Day surgery (SDC) | payer OTHER ==
[~2023-05-07] VITALS: Ht 167.6 cm; Wt 54.9 kg
[2023-05-07] MEDS: NS 1,000 ML IV ONE (06:00)
[~2023-05-07 10:57] MED LIST changes: +ERGO500029 PO; +MULT-90 PO
[2023-05-07] MEDS ORDERED: propofoL 200 MG/20 ML VIAL As Ordered ONE ×3 (13:16→13:38)
[2023-05-07 14:05] VITALS: BP 122/72; O2SAT 96
== END 2023-05-07 14:11 | disposition home or self-care (01) ==
LOC: M OPP 10:57
PROVIDERS: ATTEND Internal Medicine Gastroenterology
DX: Z12.11 Encounter for screening for malignant neoplasm of colon (principal); Z86.010 Personal history of colon polyps; D12.6 Benign neoplasm of colon, unspecified; K64.0 First degree hemorrhoids; F17.200 Nicotine dependence, unspecified, uncomplicated; Z79.51 Long term (current) use of inhaled steroids; Z79.899 Other long term (current) drug therapy

== ENCOUNTER → 2023-09-24 | Outpatient (CLI) | payer OTHER ==
[~2023-09-24] MED LIST changes: +ALBU2.5V10 INH; +ALBU2.5V10 NEB; +FOLI1TAB11 PO; +LEVO750T14 PO; +PRED20TA PO; +RISATAB3 PO; +SYMB80INH INH; +THIA100T7 PO
== END ==
LOC: M PLAIMG 11:30
PROVIDERS: ATTEND Internal Medicine Pulmonary Disease
DX: R91.1 Solitary pulmonary nodule (principal)

== ENCOUNTER 2024-09-23 11:30 | Inpatient (IN) | payer OTHER ==
[~2024-09-23] VITALS: Ht 167.6 cm; Wt 49.0 kg
[2024-09-23] VITALS (8 sets, daily range): BP systolic 110–126; BP diastolic 70–77; TEMP 98–98.4; O2SAT 90–94
[~2024-09-23 11:30] MED LIST changes: +DOXY-440 PO; -DOXY-444 PO; -LEVO750T14 PO; +LEVO75TAB PO
[2024-09-23] MEDS: KETOROLAC 30 MG/ML 1ML VIAL IV ONE (12:26)
[2024-09-23 13:14] LABS: BASO % 0.4 % (0.0-1.0); HEMATOCRIT 40.6 % (42.0-52.0); HEMOGLOBIN 14.8 g/dl (13.5-17.5); LYMPH # 0.7 10^3/uL (1.5-5.0); MEAN CORPUSCULAR HEMOGLOBIN 38.3 pg (27.0-33.0); MEAN CORPUSCULAR HGB CONC 36.5 g/dl (32.0-36.5); MEAN CORPUSCULAR VOLUME 105.2 fl (80.0-96.0); MONO # 0.8 10^3/uL (0.0-0.8); NEUTROPHILS # 6.8 10^3/uL (1.5-8.5); NEUTROPHILS % 81.2 % (36.0-66.0); PLATELET COUNT, AUTOMATED 192 10^3/uL (150-450); RED BLOOD COUNT 3.86 10^6/uL (4.30-6.10); WHITE BLOOD COUNT 8.3 10^3/uL (4.0-10.0)
[2024-09-23 13:40] LABS: ALBUMIN 2.9 G/DL (3.2-5.2); ALKALINE PHOSPHATASE 109 U/L (40-129); ALT/SGPT 23 U/L (7.0-40); AST/SGOT 36 U/L (<34); BILIRUBIN,DIRECT 0.4 MG/DL (<0.4); BILIRUBIN,TOTAL 0.7 MG/DL (0.3-1.2); TOTAL PROTEIN 6.8 G/DL (5.7-8.2)
[2024-09-23 13:42] LABS: INR 0.97; PROTHROMBIN TIME 13.2 SECONDS (12.5-14.5)
[2024-09-23] MEDS ORDERED: LORazepam 2 MG TAB PO PRN ×2 (14:05→14:40)
[2024-09-23] MEDS ORDERED: MORPHINE 2 MG/ML 1ML VIAL IV PRN (14:15)
[2024-09-23 14:22] LABS: BLOOD UREA NITROGEN < 5 MG/DL (9-23); CALCIUM LEVEL 9.3 MG/DL (8.3-10.6); CARBON DIOXIDE LEVEL 22 MMOL/L (20-31); CHLORIDE LEVEL 105 MMOL/L (98-107); CREATININE FOR GFR 0.57 MG/DL (0.70-1.30); GLOMERULAR FILTRATION RATE > 60.0 (>49); GLUCOSE, FASTING 106 MG/DL (74-106); POTASSIUM SERUM 3.1 MMOL/L (3.5-5.1); SODIUM LEVEL 138 MMOL/L (136-145)
[2024-09-23] MEDS: IPRATROPIUM 0.5MG/ALBUTEROL 2.5MG INH SOL UD 3ML (DUONEB) NEB SCH ×2 (14:30→19:32)
[2024-09-23] MEDS: MULTIVITAMINS/MINERALS THERAP 1 TAB PO SCH (14:35)
[2024-09-23] MEDS: THIAMINE 100 MG TAB PO SCH ×2 (14:35→20:35)
[2024-09-23] MEDS: FOLIC ACID 1MG TAB PO SCH (14:35)
[2024-09-23] MEDS ORDERED: IPRATROPIUM 0.5MG/ALBUTEROL 2.5MG INH SOL UD 3ML (DUONEB) NEB PRN (14:40)
[2024-09-23] MEDS ORDERED: ACETAMINOPHEN 325 MG TAB PO PRN (14:40)
[2024-09-23] MEDS ORDERED: MAALOX 30 ML SUSP *UDC PO PRN (14:40)
[2024-09-23] MEDS ORDERED: MOM 30ML SUSPENSION UDC PO PRN (14:40)
[2024-09-23] MEDS: methylPREDNISolone 40MG 1ML VIAL IV SCH (14:51)
[2024-09-23 15:05] LABS: MAGNESIUM LEVEL 1.2 MG/DL (1.8-2.4)
[2024-09-23] MEDS ORDERED: SENNA 8.6 MG TAB (SENOKOT) PO PRN (15:45)
[2024-09-23] MEDS ORDERED: HOME MED LIST COMPLETE! XX SCH (16:10)
[2024-09-23] MEDS: LIDOCAINE 5% (LIDODERM) PATCH TD SCH (16:25)
[2024-09-23] MEDS: POTASSIUM CHLORIDE 10MEQ SR TABLET PO ONE (16:25)
[2024-09-23] MEDS: ACETAMINOPHEN *IV* 1,000 MG in IV 1 EA IV SCH (16:26)
[2024-09-23] MEDS: OXAZEPAM 10MG CAP PO SCH (17:11)
[2024-09-23] MEDS: ENOXAPARIN 40MG/0.4ML SYRINGE (J1650 PER 10MG) SC SCH (17:11)
[2024-09-23] MEDS: PANTOPRAZOLE 40MG VIAL IV SCH (17:12)
[2024-09-23] MEDS: HYDROMORPHONE HCL 0.5 MG/ 0.5 ML SYRINGE IV PRN ×2 (18:35→21:49)
[2024-09-23] MEDS: MAG SULF 1GM/100ML (MAG RUN) 1 GM in IV 1 EA IV SCH (18:35)
[2024-09-23 18:57] LABS: C REACTIVE PROTEIN QUANTITATIV 1.2 MG/DL (<1.0)
[2024-09-23 19:10] LABS: PROCALCITONIN 0.08 ng/ml
[2024-09-23] MEDS: ADVAIR HFA 115/21MCG INHALER INH SCH (19:32)
[2024-09-23] MEDS: DOCUSATE SODIUM 100MG CAPSULE PO SCH (20:35)
[2024-09-23] MEDS: guaiFENesin ER TABLET 600 MG TAB PO SCH (20:35)
[2024-09-23] MEDS: KETOROLAC 30 MG/ML 1ML VIAL IV SCH (22:52)
[2024-09-24] VITALS (27 sets, daily range): BP systolic 95–135; BP diastolic 63–86; TEMP 97.4–98.2; O2SAT 86–97
[2024-09-24 06:51] LABS: BASO % 0.1 % (0.0-1.0); HEMATOCRIT 39.8 % (42.0-52.0); HEMOGLOBIN 14.3 g/dl (13.5-17.5); LYMPH # 0.2 10^3/uL (1.5-5.0); LYMPH % 2.8 % (24.0-44.0); MEAN CORPUSCULAR HEMOGLOBIN 37.7 pg (27.0-33.0); MEAN CORPUSCULAR HGB CONC 35.9 g/dl (32.0-36.5); MONO # 0.7 10^3/uL (0.0-0.8); MONO % 9.3 % (2.0-8.0); NEUTROPHILS % 87.4 % (36.0-66.0); PLATELET COUNT, AUTOMATED 181 10^3/uL (150-450); RED BLOOD COUNT 3.79 10^6/uL (4.30-6.10)
[2024-09-24 07:18] LABS: ALBUMIN 2.5 G/DL (3.2-5.2); ALKALINE PHOSPHATASE 95 U/L (40-129); ALT/SGPT 18 U/L (7.0-40); AST/SGOT 18 U/L (<34); BILIRUBIN,DIRECT 0.5 MG/DL (<0.4); BLOOD UREA NITROGEN 7 MG/DL (9-23); CALCIUM LEVEL 9.2 MG/DL (8.3-10.6); CARBON DIOXIDE LEVEL 24 MMOL/L (20-31); CHLORIDE LEVEL 103 MMOL/L (98-107); CREATININE FOR GFR 0.48 MG/DL (0.70-1.30); GLOMERULAR FILTRATION RATE > 60.0 (>49); GLUCOSE, FASTING 191 MG/DL (74-106); MAGNESIUM LEVEL 2.1 MG/DL (1.8-2.4); POTASSIUM SERUM 3.4 MMOL/L (3.5-5.1); SODIUM LEVEL 135 MMOL/L (136-145); TOTAL PROTEIN 6.3 G/DL (5.7-8.2)
[2024-09-24] MEDS: POTASSIUM CHLORIDE 10MEQ SR TABLET PO ONE (10:02)
[2024-09-24] MEDS: HYDROMORPHONE HCL 0.5 MG/ 0.5 ML SYRINGE IV PRN ×2 (10:03→14:03)
[2024-09-24] MEDS: MULTIVITAMINS/MINERALS THERAP 1 TAB PO SCH (10:05)
[2024-09-24] MEDS: FOLIC ACID 1MG TAB PO SCH (10:05)
[2024-09-24] MEDS: LevoFLOXacin 500 MG TABLET PO SCH (11:52)
[2024-09-24] MEDS ORDERED: LevoFLOXacin IV 750 MG in IV 1 EA IV SCH (12:00)
[2024-09-24] MEDS: SODIUM CHLORIDE HYPERTONIC 3% 4ML NEB SOL INH ONE (16:30)
[2024-09-24] MEDS: IPRATROPIUM 0.5MG/ALBUTEROL 2.5MG INH SOL UD 3ML (DUONEB) NEB SCH (20:31)
[2024-09-24] MEDS: SODIUM CHLORIDE HYPERTONIC 3% 4ML NEB SOL INH SCH (20:31)
[2024-09-25] VITALS (28 sets, daily range): BP systolic 95–143; BP diastolic 62–96; TEMP 97.3–98.4; O2SAT 85–96
[2024-09-25 05:10] LABS: HEMATOCRIT 37.3 % (42.0-52.0); HEMOGLOBIN 13.3 g/dl (13.5-17.5); MEAN CORPUSCULAR HEMOGLOBIN 38.4 pg (27.0-33.0); MEAN CORPUSCULAR HGB CONC 35.7 g/dl (32.0-36.5); MEAN CORPUSCULAR VOLUME 107.8 fl (80.0-96.0); PLATELET COUNT, AUTOMATED 150 10^3/uL (150-450); RED BLOOD COUNT 3.46 10^6/uL (4.30-6.10); WHITE BLOOD COUNT 7.6 10^3/uL (4.0-10.0)
[2024-09-25 05:43] LABS: ALBUMIN 2.2 G/DL (3.2-5.2); ALKALINE PHOSPHATASE 60 U/L (40-129); ALT/SGPT 13 U/L (7.0-40); AST/SGOT 13 U/L (<34); BILIRUBIN,DIRECT 0.5 MG/DL (<0.4); BILIRUBIN,TOTAL 0.9 MG/DL (0.3-1.2); BLOOD UREA NITROGEN 10 MG/DL (9-23); CALCIUM LEVEL 9.5 MG/DL (8.3-10.6); CARBON DIOXIDE LEVEL 25 MMOL/L (20-31); CHLORIDE LEVEL 103 MMOL/L (98-107); GLOMERULAR FILTRATION RATE > 60.0 (>49); GLUCOSE, FASTING 146 MG/DL (74-106); MAGNESIUM LEVEL 1.8 MG/DL (1.8-2.4); POTASSIUM SERUM 4.7 MMOL/L (3.5-5.1); SODIUM LEVEL 135 MMOL/L (136-145); TOTAL PROTEIN 5.4 G/DL (5.7-8.2)
[2024-09-25 07:04] LABS: ANISOCYTOSIS 1+; ATYPICAL LYMPH 2 % (0-5); LYMPHOCYTES 8 % (16-44); MONOCYTES 9 % (0-5); NEUTROPHILS 73 % (28-66); PLATELET ESTIMATE NORMAL (NORMAL)
[2024-09-25] MEDS ORDERED: LORazepam 2 MG TAB PO PRN (11:40)
[2024-09-25] MEDS ORDERED: OXAZEPAM 10MG CAP PO SCH (14:00)
[2024-09-25] MEDS: SODIUM CHLORIDE HYPERTONIC 3% 4ML NEB SOL INH SCH (15:07)
[2024-09-25] MEDS: ALBUTEROL SULFATE 2.5MG/0.5ML INH NEB SOLN NEB SCH (15:07)
[2024-09-25] MEDS: SENNA 8.6 MG TAB (SENOKOT) PO SCH (21:00)
[2024-09-26] VITALS (38 sets, daily range): BP systolic 127–150; BP diastolic 74–90; TEMP 97.2–98.2; O2SAT 83–94
[2024-09-26] MEDS: methylPREDNISolone 40MG 1ML VIAL IV SCH (04:04)
[2024-09-26 06:18] LABS: BASO % 0.1 % (0.0-1.0); HEMATOCRIT 37.9 % (42.0-52.0); HEMOGLOBIN 13.5 g/dl (13.5-17.5); LYMPH # 0.3 10^3/uL (1.5-5.0); LYMPH % 4.1 % (24.0-44.0); MEAN CORPUSCULAR HEMOGLOBIN 38.2 pg (27.0-33.0); MEAN CORPUSCULAR HGB CONC 35.6 g/dl (32.0-36.5); MEAN CORPUSCULAR VOLUME 107.4 fl (80.0-96.0); MONO # 0.6 10^3/uL (0.0-0.8); MONO % 7.7 % (2.0-8.0); NEUTROPHILS # 6.9 10^3/uL (1.5-8.5); NEUTROPHILS % 87.7 % (36.0-66.0); PLATELET COUNT, AUTOMATED 167 10^3/uL (150-450); RED BLOOD COUNT 3.53 10^6/uL (4.30-6.10); WHITE BLOOD COUNT 7.8 10^3/uL (4.0-10.0)
[2024-09-26 06:57] LABS: ALBUMIN 2.4 G/DL (3.2-5.2); ALKALINE PHOSPHATASE 69 U/L (40-129); ALT/SGPT 11 U/L (7.0-40); AST/SGOT 16 U/L (<34); BILIRUBIN,DIRECT 0.4 MG/DL (<0.4); BILIRUBIN,TOTAL 0.7 MG/DL (0.3-1.2); BLOOD UREA NITROGEN 12 MG/DL (9-23); CALCIUM LEVEL 9.7 MG/DL (8.3-10.6); CARBON DIOXIDE LEVEL 24 MMOL/L (20-31); CHLORIDE LEVEL 101 MMOL/L (98-107); CREATININE FOR GFR 0.53 MG/DL (0.70-1.30); GLOMERULAR FILTRATION RATE > 60.0 (>49); GLUCOSE, FASTING 118 MG/DL (74-106); MAGNESIUM LEVEL 1.6 MG/DL (1.8-2.4); POTASSIUM SERUM 4.3 MMOL/L (3.5-5.1); SODIUM LEVEL 135 MMOL/L (136-145); TOTAL PROTEIN 5.8 G/DL (5.7-8.2)
[2024-09-26] MEDS: MAG SULF 1GM/100ML (MAG RUN) 1 GM in IV 1 EA IV SCH (07:47)
[2024-09-27] VITALS (57 sets, daily range): BP systolic 78–189; BP diastolic 59–109; TEMP 96.6–97.9; O2SAT 79–100
[2024-09-27 05:26] LABS: BASO % 0.2 % (0.0-1.0); HEMATOCRIT 39.3 % (42.0-52.0); HEMOGLOBIN 14.1 g/dl (13.5-17.5); LYMPH # 0.7 10^3/uL (1.5-5.0); LYMPH % 5.2 % (24.0-44.0); MEAN CORPUSCULAR HEMOGLOBIN 38.2 pg (27.0-33.0); MEAN CORPUSCULAR HGB CONC 35.9 g/dl (32.0-36.5); MEAN CORPUSCULAR VOLUME 106.5 fl (80.0-96.0); MONO % 8.3 % (2.0-8.0); NEUTROPHILS # 10.7 10^3/uL (1.5-8.5); NEUTROPHILS % 85.3 % (36.0-66.0); PLATELET COUNT, AUTOMATED 186 10^3/uL (150-450); RED BLOOD COUNT 3.69 10^6/uL (4.30-6.10); WHITE BLOOD COUNT 12.6 10^3/uL (4.0-10.0)
[2024-09-27 05:54] LABS: ALBUMIN 2.3 G/DL (3.2-5.2); ALKALINE PHOSPHATASE 88 U/L (40-129); ALT/SGPT 19 U/L (7.0-40); AST/SGOT 31 U/L (<34); BILIRUBIN,DIRECT 0.4 MG/DL (<0.4); BILIRUBIN,TOTAL 0.7 MG/DL (0.3-1.2); BLOOD UREA NITROGEN 9 MG/DL (9-23); CALCIUM LEVEL 9.7 MG/DL (8.3-10.6); CARBON DIOXIDE LEVEL 26 MMOL/L (20-31); CHLORIDE LEVEL 101 MMOL/L (98-107); CREATININE FOR GFR 0.51 MG/DL (0.70-1.30); GLOMERULAR FILTRATION RATE > 60.0 (>49); GLUCOSE, FASTING 96 MG/DL (74-106); MAGNESIUM LEVEL 1.6 MG/DL (1.8-2.4); POTASSIUM SERUM 3.8 MMOL/L (3.5-5.1); SODIUM LEVEL 136 MMOL/L (136-145); TOTAL PROTEIN 5.8 G/DL (5.7-8.2)
[2024-09-27] MEDS ORDERED: MIDAZOLAM 100MG/100ML-0.9%NACL 100 MG in IV 1 EA IV SCH (07:45)
[2024-09-27] MEDS: ETOMIDATE INJ 20MG/10ML VIAL IV STA (07:55)
[2024-09-27] MEDS: SUCCINYLCHOLINE INJ 200MG/10ML VIAL IV STA (07:56)
[2024-09-27] MEDS: NS 500 ML IV ONE (07:56)
[2024-09-27] MEDS ORDERED: MIDAZOLAM INJ 2MG/2ML VIAL As Ordered ONE (08:07)
[2024-09-27] MEDS ORDERED: MIDAZOLAM INJ 2MG/2ML VIAL IV PRN (08:10)
[2024-09-27] MEDS ORDERED: PROPOFOL 1,000 MG/100 ML VIAL As Ordered ONE (08:12)
[2024-09-27] MEDS: ROCURONIUM BROMIDE 50MG/5ML VIAL IV ONE (08:25)
[2024-09-27 08:55] LABS: ABG HCO3 20.3 MMOL/L (22.0-26.0); ABG O2 SATURATION 96.7 % (95.0-99.0); ABG PARTIAL PRESSURE CO2 38.7 mmHg (35.0-45.0); ABG PARTIAL PRESSURE O2 99.5 mmHg (75.0-100.0); ABG STANDARD HCO3 20.4 MMOL/L. (22.0-26.0); ABG TOTAL CO2 21.5 MMOL/L (23.0-31.0); ABG pH (ARTERIAL) 7.338 UNITS (7.350-7.450)
[2024-09-27] MEDS ORDERED: predniSONE 10MG TAB PO SCH (09:00)
[2024-09-27] MEDS ORDERED: FENTANYL DRIP LOCK BOX KEY 1 EACH XX PRN (09:10)
[2024-09-27] MEDS: PANTOPRAZOLE 40MG VIAL IV SCH (10:36)
[2024-09-27] MEDS: MAG SULF 1GM/100ML (MAG RUN) 1 GM in IV 1 EA IV SCH (10:39)
[2024-09-27] MEDS: MIDAZOLAM INJ 2MG/2ML VIAL IV STA (11:13)
[2024-09-27] MEDS: propofoL 200 MG/20 ML VIAL IV ONE (11:14)
[2024-09-27] MEDS: methylPREDNISolone 40MG 1ML VIAL IV SCH (11:18)
[2024-09-27] MEDS: IPRATROPIUM 0.5MG/ALBUTEROL 2.5MG INH SOL UD 3ML (DUONEB) NEB SCH (13:14)
[2024-09-27] MEDS: fentaNYL CITRATE/NaCl 1,000 MCG in IV 1 EA IV SCH (13:18)
[2024-09-27] MEDS: fentaNYL 100 MCG/2 ML INJECTION IV PRN (13:26)
[2024-09-27] MEDS: CISATRACURIUM 200 MG in NS 480 ML IV SCH (13:43)
[2024-09-27] MEDS ORDERED: MOM 30ML SUSPENSION UDC GT PRN (14:04)
[2024-09-27] MEDS: propofoL 1,000 MG in IV 1 EA IV SCH (15:55)
[2024-09-27] MEDS: DOCUSATE SOD LIQ 100MG/10ML UDC GT SCH (22:16)
[2024-09-28] VITALS (39 sets, daily range): BP systolic 90–157; BP diastolic 64–101; TEMP 96.6–98.6; O2SAT 87–99
[2024-09-28 04:34] LABS: BASO % 0.2 % (0.0-1.0); HEMATOCRIT 37.4 % (42.0-52.0); HEMOGLOBIN 12.8 g/dl (13.5-17.5); LYMPH # 0.3 10^3/uL (1.5-5.0); MEAN CORPUSCULAR HEMOGLOBIN 37.5 pg (27.0-33.0); MEAN CORPUSCULAR HGB CONC 34.2 g/dl (32.0-36.5); MEAN CORPUSCULAR VOLUME 109.7 fl (80.0-96.0); MONO # 0.5 10^3/uL (0.0-0.8); MONO % 7.6 % (2.0-8.0); NEUTROPHILS # 5.6 10^3/uL (1.5-8.5); NEUTROPHILS % 87.4 % (36.0-66.0); PLATELET COUNT, AUTOMATED 164 10^3/uL (150-450); RED BLOOD COUNT 3.41 10^6/uL (4.30-6.10); WHITE BLOOD COUNT 6.5 10^3/uL (4.0-10.0)
[2024-09-28 05:10] LABS: ALKALINE PHOSPHATASE 81 U/L (40-129); ALT/SGPT 20 U/L (7.0-40); AST/SGOT 24 U/L (<34); BILIRUBIN,DIRECT 0.3 MG/DL (<0.4); BILIRUBIN,TOTAL 0.4 MG/DL (0.3-1.2); BLOOD UREA NITROGEN 14 MG/DL (9-23); CALCIUM LEVEL 9.3 MG/DL (8.3-10.6); CARBON DIOXIDE LEVEL 28 MMOL/L (20-31); CHLORIDE LEVEL 104 MMOL/L (98-107); CREATININE FOR GFR 0.52 MG/DL (0.70-1.30); GLOMERULAR FILTRATION RATE > 60.0 (>49); GLUCOSE, FASTING 225 MG/DL (74-106); MAGNESIUM LEVEL 2.2 MG/DL (1.8-2.4); POTASSIUM SERUM 3.8 MMOL/L (3.5-5.1); SODIUM LEVEL 138 MMOL/L (136-145); TOTAL PROTEIN 5.5 G/DL (5.7-8.2)
[2024-09-28] MEDS: CEFEPIME HCL 2 GM in DEXTROSE 5% (D5W) ADV/MINI-BAG 50 ML IV SCH (05:27)
[2024-09-28 05:46] LABS: ABG BASE EXCESS 0.5 (-2.0-2.0); ABG O2 SATURATION 98.3 % (95.0-99.0); ABG PARTIAL PRESSURE CO2 50.4 mmHg (35.0-45.0); ABG PARTIAL PRESSURE O2 116.1 mmHg (75.0-100.0); ABG TOTAL CO2 28.5 MMOL/L (23.0-31.0); ABG pH (ARTERIAL) 7.346 UNITS (7.350-7.450)
[2024-09-28] MEDS: dexmedeTOMidine 200 MCG in IV 1 EA IV SCH (08:37)
[2024-09-28] MEDS ORDERED: VITAMIN D 50,000 UNITS CAPSULE (ERGOCALCIFEROL 1.25MG) PO SCH (09:00)
[2024-09-28] MEDS: MULTIVITAMINS/MINERALS THERAP 1 TAB GT SCH (09:37)
[2024-09-28] MEDS: FOLIC ACID 1MG TAB GT SCH (09:37)
[2024-09-28] MEDS: methylPREDNISolone 40MG 1ML VIAL IV SCH (11:45)
[2024-09-28] MEDS: ceFAZolin SOD 2 GM in IV 1 EA IV SCH (13:02)
[2024-09-28] MEDS: ACETAMINOPHEN 325 MG TAB PO PRN (13:16)
[2024-09-28] MEDS: HYDROMORPHONE HCL 0.5 MG/ 0.5 ML SYRINGE IV PRN (20:01)
[2024-09-29] VITALS (29 sets, daily range): BP systolic 110–130; BP diastolic 62–80; TEMP 97.9–98.4; O2SAT 86–98
[2024-09-29 05:10] LABS: BASO % 0.1 % (0.0-1.0); HEMOGLOBIN 11.3 g/dl (13.5-17.5); LYMPH # 0.5 10^3/uL (1.5-5.0); LYMPH % 6.8 % (24.0-44.0); MEAN CORPUSCULAR HEMOGLOBIN 37.8 pg (27.0-33.0); MEAN CORPUSCULAR HGB CONC 35.3 g/dl (32.0-36.5); MONO # 0.8 10^3/uL (0.0-0.8); MONO % 10.3 % (2.0-8.0); NEUTROPHILS # 6.1 10^3/uL (1.5-8.5); NEUTROPHILS % 81.9 % (36.0-66.0); PLATELET COUNT, AUTOMATED 172 10^3/uL (150-450); RED BLOOD COUNT 2.99 10^6/uL (4.30-6.10); WHITE BLOOD COUNT 7.4 10^3/uL (4.0-10.0)
[2024-09-29 05:42] LABS: ALBUMIN 1.9 G/DL (3.2-5.2); ALKALINE PHOSPHATASE 74 U/L (40-129); ALT/SGPT 32 U/L (7.0-40); AST/SGOT 30 U/L (<34); BILIRUBIN,DIRECT 0.3 MG/DL (<0.4); BILIRUBIN,TOTAL 0.5 MG/DL (0.3-1.2); BLOOD UREA NITROGEN 8 MG/DL (9-23); CALCIUM LEVEL 8.9 MG/DL (8.3-10.6); CARBON DIOXIDE LEVEL 28 MMOL/L (20-31); CHLORIDE LEVEL 103 MMOL/L (98-107); CREATININE FOR GFR 0.45 MG/DL (0.70-1.30); GLOMERULAR FILTRATION RATE > 60.0 (>49); GLUCOSE, FASTING 128 MG/DL (74-106); MAGNESIUM LEVEL 1.7 MG/DL (1.8-2.4); SODIUM LEVEL 138 MMOL/L (136-145); TOTAL PROTEIN 5.1 G/DL (5.7-8.2)
[2024-09-29] MEDS: MAG SULF 1GM/100ML (MAG RUN) 1 GM in IV 1 EA IV ONE (06:08)
[2024-09-29] MEDS ORDERED: VANCOMYCIN HCL 730 MG in IV FLUID PLACE HOLDER 1 EA IV ONE (08:00)
[2024-09-29] MEDS: THIAMINE 100 MG TAB PO SCH (08:30)
[2024-09-29] MEDS: VANCOMYCIN 1,000 MG/200 ML IV BAG *LOAD IV ONE (08:57)
[2024-09-29] MEDS: VANCOMYCIN 750MG/150 ML IV BAG IV SCH (17:04)
[2024-09-30] VITALS (16 sets, daily range): BP systolic 124–145; BP diastolic 71–87; TEMP 97.4–98.2; O2SAT 87–96
[2024-09-30 05:00] LABS: HEMATOCRIT 31.2 % (42.0-52.0); HEMOGLOBIN 11.2 g/dl (13.5-17.5); LYMPH # 0.4 10^3/uL (1.5-5.0); MEAN CORPUSCULAR HEMOGLOBIN 38.1 pg (27.0-33.0); MEAN CORPUSCULAR HGB CONC 35.9 g/dl (32.0-36.5); MEAN CORPUSCULAR VOLUME 106.1 fl (80.0-96.0); MONO # 0.5 10^3/uL (0.0-0.8); MONO % 9.6 % (2.0-8.0); NEUTROPHILS # 4.1 10^3/uL (1.5-8.5); NEUTROPHILS % 81.6 % (36.0-66.0); PLATELET COUNT, AUTOMATED 188 10^3/uL (150-450); RED BLOOD COUNT 2.94 10^6/uL (4.30-6.10)
[2024-09-30 05:34] LABS: ALKALINE PHOSPHATASE 70 U/L (40-129); ALT/SGPT 32 U/L (7.0-40); AST/SGOT 26 U/L (<34); BILIRUBIN,DIRECT 0.3 MG/DL (<0.4); BILIRUBIN,TOTAL 0.5 MG/DL (0.3-1.2); BLOOD UREA NITROGEN 9 MG/DL (9-23); CALCIUM LEVEL 8.7 MG/DL (8.3-10.6); CARBON DIOXIDE LEVEL 28 MMOL/L (20-31); CHLORIDE LEVEL 104 MMOL/L (98-107); CREATININE FOR GFR 0.41 MG/DL (0.70-1.30); GLOMERULAR FILTRATION RATE > 60.0 (>49); GLUCOSE, FASTING 117 MG/DL (74-106); MAGNESIUM LEVEL 1.6 MG/DL (1.8-2.4); POTASSIUM SERUM 3.9 MMOL/L (3.5-5.1); SODIUM LEVEL 136 MMOL/L (136-145); TOTAL PROTEIN 5.4 G/DL (5.7-8.2)
[2024-09-30] MEDS: SODIUM CHLORIDE HYPERTONIC 3% 4ML NEB SOL INH SCH (07:54)
[2024-09-30] MEDS: DOCUSATE SODIUM 100MG CAPSULE PO SCH (09:00)
[2024-09-30] MEDS: HYDROMORPHONE HCL 0.5 MG/ 0.5 ML SYRINGE IV PRN (09:35)
[2024-09-30] MEDS: MAG SULF 1GM/100ML (MAG RUN) 1 GM in IV 1 EA IV ONE (09:36)
[2024-10-01] VITALS (12 sets, daily range): BP systolic 121–145; BP diastolic 69–85; TEMP 97.6–98.5; O2SAT 90–95
[2024-10-01 07:39] LABS: HEMATOCRIT 33.2 % (42.0-52.0); MEAN CORPUSCULAR HEMOGLOBIN 38.2 pg (27.0-33.0); MEAN CORPUSCULAR HGB CONC 36.1 g/dl (32.0-36.5); MEAN CORPUSCULAR VOLUME 105.7 fl (80.0-96.0); PLATELET COUNT, AUTOMATED 230 10^3/uL (150-450); RED BLOOD COUNT 3.14 10^6/uL (4.30-6.10); WHITE BLOOD COUNT 8.1 10^3/uL (4.0-10.0)
[2024-10-01 08:04] LABS: ALBUMIN 2.1 G/DL (3.2-5.2); ALKALINE PHOSPHATASE 68 U/L (40-129); ALT/SGPT 45 U/L (7.0-40); AST/SGOT 33 U/L (<34); BILIRUBIN,TOTAL 0.6 MG/DL (0.3-1.2); BLOOD UREA NITROGEN 9 MG/DL (9-23); CALCIUM LEVEL 9.2 MG/DL (8.3-10.6); CARBON DIOXIDE LEVEL 26 MMOL/L (20-31); CHLORIDE LEVEL 103 MMOL/L (98-107); CREATININE FOR GFR 0.45 MG/DL (0.70-1.30); GLOMERULAR FILTRATION RATE > 60.0 (>49); GLUCOSE, FASTING 107 MG/DL (74-106); MAGNESIUM LEVEL 1.6 MG/DL (1.8-2.4); POTASSIUM SERUM 4.2 MMOL/L (3.5-5.1); SODIUM LEVEL 136 MMOL/L (136-145); TOTAL PROTEIN 5.3 G/DL (5.7-8.2)
[2024-10-01] MEDS ORDERED: HYDROMORPHONE HCL 0.5 MG/ 0.5 ML SYRINGE IV PRN (08:40)
[2024-10-01] MEDS ORDERED: IBUPROFEN 400MG TAB PO PRN (08:40)
[2024-10-01] MEDS: MAG SULF 1GM/100ML (MAG RUN) 1 GM in IV 1 EA IV STA (08:44)
[2024-10-01] MEDS: PANTOPRAZOLE 40MG TAB (PROTONIX) PO SCH (08:44)
[2024-10-01] MEDS: predniSONE 20 MG TAB PO SCH (08:44)
[2024-10-01] MEDS ORDERED: predniSONE 10MG TAB PO SCH (14:26)
[2024-10-01] MEDS: LINEZOLID 600MG TABLET (ZYVOX) PO SCH (20:59)
[2024-10-02] VITALS (15 sets, daily range): BP systolic 118–140; BP diastolic 63–83; TEMP 97.1–98.6; O2SAT 86–96
[2024-10-02 05:10] LABS: HEMATOCRIT 33.1 % (42.0-52.0); HEMOGLOBIN 11.9 g/dl (13.5-17.5); MEAN CORPUSCULAR HEMOGLOBIN 37.3 pg (27.0-33.0); MEAN CORPUSCULAR VOLUME 103.8 fl (80.0-96.0); PLATELET COUNT, AUTOMATED 243 10^3/uL (150-450); RED BLOOD COUNT 3.19 10^6/uL (4.30-6.10); WHITE BLOOD COUNT 10.8 10^3/uL (4.0-10.0)
[2024-10-02 06:01] LABS: ALKALINE PHOSPHATASE 69 U/L (40-129); ALT/SGPT 47 U/L (7.0-40); AST/SGOT 25 U/L (<34); BILIRUBIN,TOTAL 0.6 MG/DL (0.3-1.2); BLOOD UREA NITROGEN 9 MG/DL (9-23); CARBON DIOXIDE LEVEL 25 MMOL/L (20-31); CHLORIDE LEVEL 105 MMOL/L (98-107); CREATININE FOR GFR 0.48 MG/DL (0.70-1.30); GLOMERULAR FILTRATION RATE > 60.0 (>49); GLUCOSE, FASTING 83 MG/DL (74-106); MAGNESIUM LEVEL 1.4 MG/DL (1.8-2.4); POTASSIUM SERUM 3.3 MMOL/L (3.5-5.1); SODIUM LEVEL 137 MMOL/L (136-145); TOTAL PROTEIN 5.1 G/DL (5.7-8.2)
[2024-10-02] MEDS: MAG SULF 1GM/100ML (MAG RUN) 1 GM in IV 1 EA IV SCH (07:00)
[2024-10-02] MEDS: predniSONE 10MG TAB PO SCH (08:17)
[2024-10-02] MEDS: KCL 10MEQ/100ML SWI (KRUN) 10 MEQ in IV 1 EA IV ONE (08:18)
[2024-10-02] MEDS: POTASSIUM CHLORIDE 10MEQ SR TABLET PO SCH (08:21)
[2024-10-02] MEDS: IBUPROFEN 600MG TAB PO PRN (08:54)
[2024-10-03] VITALS (31 sets, daily range): BP systolic 125–136; BP diastolic 71–84; TEMP 97–97.8; O2SAT 88–96
[2024-10-03 05:12] LABS: HEMATOCRIT 31.9 % (42.0-52.0); HEMOGLOBIN 11.2 g/dl (13.5-17.5); MEAN CORPUSCULAR HGB CONC 35.1 g/dl (32.0-36.5); MEAN CORPUSCULAR VOLUME 105.3 fl (80.0-96.0); PLATELET COUNT, AUTOMATED 269 10^3/uL (150-450); RED BLOOD COUNT 3.03 10^6/uL (4.30-6.10); WHITE BLOOD COUNT 9.6 10^3/uL (4.0-10.0)
[2024-10-03 05:38] LABS: ALKALINE PHOSPHATASE 70 U/L (40-129); ALT/SGPT 41 U/L (7.0-40); AST/SGOT 16 U/L (<34); BILIRUBIN,TOTAL 0.4 MG/DL (0.3-1.2); BLOOD UREA NITROGEN 8 MG/DL (9-23); CALCIUM LEVEL 8.9 MG/DL (8.3-10.6); CARBON DIOXIDE LEVEL 25 MMOL/L (20-31); CHLORIDE LEVEL 106 MMOL/L (98-107); CREATININE FOR GFR 0.49 MG/DL (0.70-1.30); GLOMERULAR FILTRATION RATE > 60.0 (>49); GLUCOSE, FASTING 89 MG/DL (74-106); MAGNESIUM LEVEL 1.6 MG/DL (1.8-2.4); POTASSIUM SERUM 4.2 MMOL/L (3.5-5.1); SODIUM LEVEL 136 MMOL/L (136-145)
[2024-10-03] MEDS: MAGNESIUM OXIDE 400MG TAB (MAG-OX) PO SCH (08:39)
[2024-10-03] MEDS: MAG SULF 1GM/100ML (MAG RUN) 1 GM in IV 1 EA IV ONE (08:45)
[2024-10-03] MEDS: traZODone 25MG PER 1/2 TABLET PO PRN (20:07)
[2024-10-04] VITALS (30 sets, daily range): BP systolic 118–137; BP diastolic 71–75; TEMP 97.4–97.9; O2SAT 87–98
[2024-10-04] MEDS: MAGNESIUM OXIDE 400MG TAB (MAG-OX) PO SCH (11:05)
[2024-10-05] VITALS: O2SAT 96
[2024-10-05 00:04] VITALS: BP 141/77; TEMP 97.8; O2SAT 94
[2024-10-05 00:13] VITALS: BP 130/79; TEMP 97.5; O2SAT 93
[2024-10-05 04:22] VITALS: BP 133/77; TEMP 97.5; O2SAT 92
[2024-10-05 09:55] LABS: HEMATOCRIT 36.2 % (42.0-52.0); HEMOGLOBIN 12.6 g/dl (13.5-17.5); MEAN CORPUSCULAR HGB CONC 34.8 g/dl (32.0-36.5); PLATELET COUNT, AUTOMATED 393 10^3/uL (150-450); RED BLOOD COUNT 3.32 10^6/uL (4.30-6.10); WHITE BLOOD COUNT 10.7 10^3/uL (4.0-10.0)
[2024-10-05 10:23] LABS: ALBUMIN 2.4 G/DL (3.2-5.2); ALKALINE PHOSPHATASE 96 U/L (40-129); ALT/SGPT 64 U/L (7.0-40); AST/SGOT 26 U/L (<34); BILIRUBIN,TOTAL 0.3 MG/DL (0.3-1.2); BLOOD UREA NITROGEN 12 MG/DL (9-23); CALCIUM LEVEL 9.9 MG/DL (8.3-10.6); CARBON DIOXIDE LEVEL 25 MMOL/L (20-31); CHLORIDE LEVEL 101 MMOL/L (98-107); GLOMERULAR FILTRATION RATE > 60.0 (>49); GLUCOSE, FASTING 100 MG/DL (74-106); MAGNESIUM LEVEL 1.4 MG/DL (1.8-2.4); POTASSIUM SERUM 4.5 MMOL/L (3.5-5.1); SODIUM LEVEL 134 MMOL/L (136-145)
[2024-10-05 12:00] VITALS: BP 130/79; TEMP 97.5; O2SAT 97
[2024-10-05 19:34] VITALS: BP 133/73; TEMP 97.7; O2SAT 92
[2024-10-06 04:00] VITALS: BP 137/75; TEMP 97.2; O2SAT 94
[2024-10-06 12:01] VITALS: BP 122/80; TEMP 97.5; O2SAT 89
[2024-10-06 19:52] VITALS: BP 128/82; TEMP 97.5; O2SAT 94
[2024-10-07 04:02] VITALS: BP 125/74; TEMP 97.7; O2SAT 93
[2024-10-07] MEDS ORDERED: MAG SULF 1GM/100ML (MAG RUN) 1 GM in IV 1 EA IV SCH (07:15)
[2024-10-07 07:44] LABS: HEMATOCRIT 38.4 % (42.0-52.0); HEMOGLOBIN 13.2 g/dl (13.5-17.5); MEAN CORPUSCULAR HEMOGLOBIN 37.4 pg (27.0-33.0); MEAN CORPUSCULAR HGB CONC 34.4 g/dl (32.0-36.5); MEAN CORPUSCULAR VOLUME 108.8 fl (80.0-96.0); PLATELET COUNT, AUTOMATED 451 10^3/uL (150-450); RED BLOOD COUNT 3.53 10^6/uL (4.30-6.10)
[2024-10-07 08:15] LABS: ALBUMIN 2.8 G/DL (3.2-5.2); ALKALINE PHOSPHATASE 105 U/L (40-129); ALT/SGPT 87 U/L (7.0-40); AST/SGOT 29 U/L (<34); BILIRUBIN,TOTAL 0.5 MG/DL (0.3-1.2); BLOOD UREA NITROGEN 16 MG/DL (9-23); CALCIUM LEVEL 10.4 MG/DL (8.3-10.6); CARBON DIOXIDE LEVEL 27 MMOL/L (20-31); CHLORIDE LEVEL 101 MMOL/L (98-107); CREATININE FOR GFR 0.63 MG/DL (0.70-1.30); GLOMERULAR FILTRATION RATE > 60.0 (>49); GLUCOSE, FASTING 88 MG/DL (74-106); POTASSIUM SERUM 4.6 MMOL/L (3.5-5.1); SODIUM LEVEL 134 MMOL/L (136-145); TOTAL PROTEIN 6.3 G/DL (5.7-8.2)
[2024-10-07] MEDS: MAG SULF 1GM/100ML (MAG RUN) 1 GM in IV 1 EA IV SCH (09:00)
[2024-10-07 12:00] VITALS: BP 116/78; TEMP 98.1; O2SAT 93
[2024-10-07 12:11] VITALS: BP 117/82
[2024-10-07] MEDS ORDERED: MAGN400T2 PO (15:43)
[2024-10-07] MEDS ORDERED: LINE1TAB6 PO (15:43)
[2024-10-07] MEDS ORDERED: PRED10PA2 PO (15:43)
[2024-10-07] MEDS ORDERED: PROB250C PO (15:43)
[2024-10-07] MEDS ORDERED: ALBU2.5V10 NEB (15:43)
[2024-10-07] MEDS ORDERED: COLA100C5 PO (15:43)
[2024-10-07 20:21] VITALS: BP 124/69; TEMP 97.3; O2SAT 93
[2024-10-08 04:43] VITALS: BP 127/73; TEMP 97; O2SAT 96
[2024-10-08 06:15] LABS: HEMATOCRIT 34.8 % (42.0-52.0); HEMOGLOBIN 11.9 g/dl (13.5-17.5); MEAN CORPUSCULAR HEMOGLOBIN 37.2 pg (27.0-33.0); MEAN CORPUSCULAR HGB CONC 34.2 g/dl (32.0-36.5); MEAN CORPUSCULAR VOLUME 108.8 fl (80.0-96.0); PLATELET COUNT, AUTOMATED 405 10^3/uL (150-450); WHITE BLOOD COUNT 8.1 10^3/uL (4.0-10.0)
[2024-10-08 06:44] LABS: ALBUMIN 2.6 G/DL (3.2-5.2); ALKALINE PHOSPHATASE 99 U/L (40-129); ALT/SGPT 89 U/L (7.0-40); AST/SGOT 29 U/L (<34); BILIRUBIN,TOTAL 0.4 MG/DL (0.3-1.2); BLOOD UREA NITROGEN 18 MG/DL (9-23); CALCIUM LEVEL 9.9 MG/DL (8.3-10.6); CARBON DIOXIDE LEVEL 28 MMOL/L (20-31); CHLORIDE LEVEL 102 MMOL/L (98-107); CREATININE FOR GFR 0.61 MG/DL (0.70-1.30); GLOMERULAR FILTRATION RATE > 60.0 (>49); GLUCOSE, FASTING 81 MG/DL (74-106); POTASSIUM SERUM 4.9 MMOL/L (3.5-5.1); SODIUM LEVEL 134 MMOL/L (136-145); TOTAL PROTEIN 5.8 G/DL (5.7-8.2)
[2024-10-08 12:00] VITALS: BP 160/90; TEMP 97.9; O2SAT 95
[2024-10-08] MEDS ORDERED: FLUBLOK(EGGFREE) TRIVAL(24-25) VACCINE PF 0.5ML SYRINGE 18YRS & OLDER IM.IMMUN ONE (14:00)
[2029-10-09] MEDS ORDERED: predniSONE 5 MG TAB PO SCH (09:00)
== END 2024-10-08 13:20 | disposition home or self-care (01) | DRG 121 ==
LOC: M ED 11:30 → EDBD 11:30 → M ED INP 14:39 → M PCU 16:52 → M ICU 09-24 15:53 → M PCU 09-25 18:03 → M ICU 09-27 07:43 → M PCU 10-02 15:48 → M MS5PR 10-05 00:09
PROVIDERS: ADMIT Internal Medicine; ATTEND Internal Medicine
PROC: 0BH17EZ Insertion of Endotracheal Airway into Trachea, Via Natural or Artificial Opening (ICD-10-PCS; principal; 2024-09-27)
PROC: 0BCM8ZZ Extirpation of Matter from Bilateral Lungs, Via Natural or Artificial Opening Endoscopic (ICD-10-PCS; 2024-09-27)
PROC: 5A1945Z Respiratory Ventilation, 24-96 Consecutive Hours (ICD-10-PCS; 2024-09-27)
PROC: 02HV33Z Insertion of Infusion Device into Superior Vena Cava, Percutaneous Approach (ICD-10-PCS; 2024-09-27)
DX: S22.42XA Multiple fractures of ribs, left side, initial encounter for closed fracture (principal); J96.01 Acute respiratory failure with hypoxia; E43 Unspecified severe protein-calorie malnutrition; J44.1 Chronic obstructive pulmonary disease with (acute) exacerbation; J15.212 Pneumonia due to Methicillin resistant Staphylococcus aureus; J43.9 Emphysema, unspecified; E87.1 Hypo-osmolality and hyponatremia; E83.42 Hypomagnesemia; I10 Essential (primary) hypertension; K27.9 Peptic ulcer, site unspecified, unspecified as acute or chronic, without hemorrhage or perforation; B95.62 Methicillin resistant Staphylococcus aureus infection as the cause of diseases classified elsewhere; F17.200 Nicotine dependence, unspecified, uncomplicated; F10.20 Alcohol dependence, uncomplicated; E87.6 Hypokalemia; R29.6 Repeated falls; J98.11 Atelectasis; K21.9 Gastro-esophageal reflux disease without esophagitis; W01.0XXA Fall on same level from slipping, tripping and stumbling without subsequent striking against object, initial encounter; R91.8 Other nonspecific abnormal finding of lung field; Y92.019 Unspecified place in single-family (private) house as the place of occurrence of the external cause; Y93.9 Activity, unspecified; Y99.8 Other external cause status; Z79.899 Other long term (current) drug therapy

== ENCOUNTER → 2025-02-10 | Outpatient (CLI) | payer OTHER ==
[~2025-02-10] MED LIST changes: +COLA100C5 PO; +LINE1TAB6 PO; +MAGN400T2 PO; +PRED10PA2 PO; +PROB250C PO
== END ==
LOC: M RAD 09:49
PROVIDERS: ATTEND Internal Medicine Pulmonary Disease
DX: R91.8 Other nonspecific abnormal finding of lung field (principal)

== ENCOUNTER → 2025-09-02 | Outpatient (CLI) | payer OTHER ==
[~2025-09-02] MED LIST changes: +ANOR1AER INH; +BACI500O8 TOP; +IBUP200T46 PO; +MAGN400T33 PO; +MUCI1TAB16 PO
== END ==
LOC: M RAD 09:57
PROVIDERS: ATTEND Internal Medicine Pulmonary Disease
DX: J44.9 Chronic obstructive pulmonary disease, unspecified (principal); I25.10 Atherosclerotic heart disease of native coronary artery without angina pectoris; R91.1 Solitary pulmonary nodule; J43.2 Centrilobular emphysema